=== PATIENT | female | born 1935 | race Two or more races ===

== ENCOUNTER → 2016-06-22 | Outpatient (CLI) | payer MEDICARE, MEDICAID | LOC: OD 12:37 | PROVIDERS: ATTEND Family Medicine | DX: R05 Cough (principal) | CPT/HCPCS: 71020 ==

== ENCOUNTER → 2017-07-11 | Outpatient (CLI) | payer MEDICARE, MEDICAID ==
--- NOTE | 2017-07-11 10:47 | RADIOLOGY REPORT (SQ) ---
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 Images stored on PACS. LIMITATIONS: None. FINDINGS: RIGHT CAROTID CCA Velocities: Within normal limits. ICA Velocities Peak systolic 0.66 m/s. End diastolic is 0.14 m/s. Proximal ICA/CCA peak systolic ratio 1.1. Spectra normal. No significant plaque. LEFT CAROTID CCA Velocities: Within normal limits. ICA Velocities Peak systolic 1.14 m/s. End diastolic 0.31 m/s. Proximal ICA/CCA peak systolic ratio 2.0. Spectra normal. No significant plaque. VERTEBRAL ARTERIES: Antegrade flow. Normal waveforms. SUBCLAVIAN ARTERIES: Not imaged. OTHER: No other significant finding. IMPRESSION: NO HEMODYNAMICALLY SIGNIFICANT STENOSIS. COMMENT: Quality ID #[id number]: Velocity criteria are extrapolated from the diameter data as defined by t he Society of Radiologists in Ultrasound Consensus Conference. Radiology 2003: 229; 340-346. TECHNICAL DOCUMENTATION: JOB ID: [id number] [employer]- All Rights Reserved Reading location - IP/workstation name: [email or web address]
== END ==
LOC: SP 08:15
PROVIDERS: ATTEND Family Medicine
DX: I65.23 Occlusion and stenosis of bilateral carotid arteries (principal)
CPT/HCPCS: 93880

== ENCOUNTER 2018-07-10 07:54 | Day surgery (SDC) | payer MEDICARE, MEDICAID ==
[~2018-07-10 07:54] MED LIST: BUPIVACAINE HCL 0.75% INJ/PF (7.5 MG/1 ML) 10 ML SDV OS PRN; KETOROLAC TROMETHAMINE 0.45% 4 DROP/0.4 ML DROPERETTE OS PRN; LIDOCAINE 4% INJ/PF (40 MG/ML) 5 ML AMPUL OS PRN
[2018-07-10] MEDS ORDERED: EPINEPHRINE INJ/PF 1 MG/1 ML AMPULE ONE (09:42)
[2018-07-10] MEDS ORDERED: LIDOCAINE 1% INJ-PF (10 MG/ML) 30 ML SDV ONE (09:42)
[2018-07-10] MEDS ORDERED: CHONDR SU A NA/HYALUR INTRAOC KIT (SURGICARE) ONE (09:42)
[2018-07-10] MEDS ORDERED: MIDAZOLAM 2 MG/2 ML INJ ONE (10:19)
[2018-07-10] MEDS: TROPICAMIDE 1% OPH SOLN 3 ML OS PRN ×3 (12:40→13:07)
[2018-07-10] MEDS: CYCLOPENTOLATE 0.2%/PHENYLEPHRINE 1% OPH SOLN 2 ML OS PRN ×3 (12:40→13:07)
[2018-07-10] MEDS: BESIFLOXACIN HCL 0.6% OPH SUSP 5 ML BOTTLE OS PRN ×4 (12:41→13:57)
[2018-07-10] MEDS: TETRACAINE HCL 0.5% OPH SOLN 0.6 ML DROPERETTE OS PRN ×2 (12:42→13:09)
[2018-07-10] MEDS ORDERED: TRYPAN BLUE 0.06 % OPH SOLN 0.5 ML DISP.SYRIN ONE (13:36)
[2018-07-10] MEDS: DORZOLAMIDE HCL 2%/TIMOLOL MALEAT 0.5% OPH SOLN 10 ML OS PRN ×2 (13:57)
--- NOTE | 2018-07-10 14:12 | [facility] DISCHARGE SUMMARY E ---
[facility] Discharge Summary NAME: PETRA GANDARA AGE: 83Y ADMITTED: 07/10/2018 DISCHARGED: 07/10/2018 HOSPITAL COURSE: The patient is a 83-year-old lady who underwent uneventful complex cataract extraction with intraocular lens implant, left eye on 07/10/18. She will be discharged to home. She is instructed to resume preoperative medications, take Tylenol as needed for discomfort, to keep her eye shielded, to use Besivance, Durezol and Ilevro at 3 p.m. and 8 p.m., and to follow up in my office in 1 day. DICTATING PHYSICIAN: KWAN EMMANUEL M.D. [id number] PHY#: [id number] ID: [id number] JOB#: [id number] ACCT: [id number] cc:KWAN EMMANUEL M.D. >
--- NOTE | 2018-07-10 14:13 | [facility] OPERATIVE REPORT E ---
[facility] Operative Report NAME: PETRA GANDARA AGE: 83Y DATE OF SURGERY: 07/10/2018 ROOM: PREOPERATIVE DIAGNOSIS: MATURE CATARACT, LEFT EYE. POSTOPERATIVE DIAGNOSIS: MATURE CATARACT, LEFT EYE. PROCEDURE PERFORMED: COMPLEX CATARACT EXTRACTION WITH INTRAOCULAR LENS IMPLANT, LEFT EYE. SURGEON: KWAN EMMANUEL MD ANESTHESIA: TOPICAL WITH MAC. INDICATIONS FOR SURGERY: Unable to read, difficulty ambulating. Best corrected visual acuity 20/400. Indications for complex poor visualization of the cataract requiring Trypan blue dye. PROCEDURE: The patient was brought to the Operating Room and placed on the operative table. Following tetracaine drops, topical anesthesia was administered. This consisted of instrument wipe pledgets soaked in a solution of 4% Xylocaine mixed with 0.75% Marcaine in a 1:2 ratio. A 2 x 1 cm pledget was placed in the superior fornix. A 1 x 1 cm pledget was placed in the inferior fornix. The eye was patched shut for 5 minutes. The patch was removed. The eye was sterilely prepped and draped in the usual manner. Lid speculum was placed in the eye. The pledgets were removed. 4-0 black silk sutures were placed around the superior and the inferior rectus muscles to be used as traction. A conjunctival peritomy was made at the 10 o'clock position. Hemostasis was obtained with bipolar cautery. A posterior limbal groove was created using a crescent knife and dissected anteriorly towards the cornea. A sharp point blade was used to create a paracentesis site at the 2 o'clock position. A 2.4 mm keratome was used to enter the anterior chamber through the groove. Viscoelastic was injected into the anterior chamber. An anterior capsulotomy was performed using Utrata forceps in a capsulorrhexis fashion. Hydrodissection and hydrodelineation were performed. Phacoemulsification was performed in parhrn-lmp-beruroq technique. A total of 1 minute 24 seconds phaco time was used. Following the incisions, a syringe with air and Trypan blue dye was injected through the side port incision exchanging aqueous with air and then injecting Trypan blue dye onto the surface of the capsule. Viscoelastic was then injected into the eye and the anterior capsulotomy was performed following this. Following this, the I/A unit was used to remove residual cortex. Viscoelastic was injected into the capsular bag. Intraocular lens model [id number], 20.5 diopters, serial number [id number] was placed in the capsular bag. The I/A unit was used to remove residual viscoelastic. The wound was seen to be watertight under high and low pressure, and no sutures were placed. The intraocular lens was well centered. The pressure was adjusted in the eye to normal pressure. The 4-0 black silk sutures and lid speculum were removed. The eye was shielded after Besivance drops were placed. The patient tolerated the procedure well and was sent to the Recovery Room in good condition. DICTATING PHYSICIAN: KWAN EMMANUEL M.D. DICTATING PHYSICIAN: KWAN EMMANUEL M.D. [id number] PHY#: [id number] ID: [id number] JOB#: [id number] ACCT: [id number] cc:KWAN EMMANUEL M.D. >
== END 2018-07-10 14:35 | disposition home or self-care (01) ==
LOC: SC 07:54
PROVIDERS: ATTEND Ophthalmology
DX: H25.813 Combined forms of age-related cataract, bilateral (principal); H04.123 Dry eye syndrome of bilateral lacrimal glands; E03.9 Hypothyroidism, unspecified; J44.9 Chronic obstructive pulmonary disease, unspecified; I10 Essential (primary) hypertension; K21.9 Gastro-esophageal reflux disease without esophagitis; Z79.51 Long term (current) use of inhaled steroids; Z79.899 Other long term (current) drug therapy
CPT/HCPCS: 66982; V2632; J2250; J3490 ×5; A9270; J0171; 142

== ENCOUNTER 2018-08-09 08:05 | Day surgery (SDC) | payer MEDICARE, MEDICAID ==
[~2018-08-09 08:05] MED LIST changes: +BUPIVACAINE HCL 0.75% INJ/PF (7.5 MG/1 ML) 10 ML SDV OD PRN; -BUPIVACAINE HCL 0.75% INJ/PF (7.5 MG/1 ML) 10 ML SDV OS PRN; +KETOROLAC TROMETHAMINE 0.45% 4 DROP/0.4 ML DROPERETTE OD PRN; -KETOROLAC TROMETHAMINE 0.45% 4 DROP/0.4 ML DROPERETTE OS PRN; +LIDOCAINE 4% INJ/PF (40 MG/ML) 5 ML AMPUL OD PRN; -LIDOCAINE 4% INJ/PF (40 MG/ML) 5 ML AMPUL OS PRN
[2018-08-09] MEDS ORDERED: EPINEPHRINE INJ/PF 1 MG/1 ML AMPULE ONE (08:18)
[2018-08-09] MEDS ORDERED: LIDOCAINE 1% INJ-PF (10 MG/ML) 30 ML SDV ONE (08:19)
[2018-08-09] MEDS ORDERED: CHONDR SU A NA/HYALUR INTRAOC KIT (SURGICARE) ONE (08:19)
[2018-08-09] MEDS: CYCLOPENTOLATE 0.2%/PHENYLEPHRINE 1% OPH SOLN 2 ML OD PRN ×3 (08:31→08:50)
[2018-08-09] MEDS: TROPICAMIDE 1% OPH SOLN 3 ML OD PRN ×3 (08:31→08:50)
[2018-08-09] MEDS: BESIFLOXACIN HCL 0.6% OPH SUSP 5 ML BOTTLE OD PRN ×4 (08:32→09:29)
[2018-08-09] MEDS: TETRACAINE HCL 0.5% OPH SOLN 0.6 ML DROPERETTE OD PRN ×2 (08:33→08:51)
[2018-08-09] MEDS ORDERED: MIDAZOLAM 2 MG/2 ML INJ ONE (08:40)
[2018-08-09] MEDS: DORZOLAMIDE HCL 2%/TIMOLOL MALEAT 0.5% OPH SOLN 10 ML OD PRN ×2 (09:23→09:29)
--- NOTE | 2018-08-09 09:43 | [facility] OPERATIVE REPORT E ---
[facility] Operative Report NAME: PETRA GANDARA AGE: 83Y DATE OF SURGERY: 08/09/2018 ROOM: PREOPERATIVE DIAGNOSIS: Cataract, right eye. POSTOPERATIVE DIAGNOSIS: Cataract, right eye. PROCEDURE PERFORMED: Phacoemulsification with posterior chamber intraocular lens, right eye. SURGEON: KWAN EMMANUEL M.D. ANESTHESIA: Topical with MAC. INDICATIONS FOR SURGERY: Difficulty seeing people's faces. Best corrected visual acuity 20/50. PROCEDURE: The patient was brought to the operating room and placed on the operative table. Following tetracaine drops, topical anesthesia was administered. This consisted of instrument wipe pledgets soaked in a solution of 4% Xylocaine mixed with 0.75% Marcaine in a 1:2 ratio. A 2 x 1 cm pledget was placed in the superior fornix. A 1 x 1 cm pledget was placed in the inferior fornix. The eye was patched shut for 5 minutes. The patch was removed. The eye was sterilely prepped and draped in the usual manner. Lid speculum was placed in the eye. The pledgets were removed and 4-0 black silk sutures were placed around the superior and the inferior rectus muscles to be used as traction. A conjunctival peritomy was made at the 10 o'clock position. Hemostasis was obtained with bipolar cautery. A posterior limbal groove was created using a crescent knife and dissected anteriorly towards the cornea. A sharp point blade was used to create a paracentesis site at the 2 o'clock position. A 2.4 mm keratome was used to enter the anterior chamber through the groove. Viscoelastic was injected into the anterior chamber. An anterior capsulotomy was performed using Utrata forceps in a capsulorrhexis fashion. Hydrodissection and hydrodelineation were performed. Phacoemulsification was performed in pnewbp-zdn-piiiojc technique. Total phaco time was 1 minute 11 seconds used. Following this, the I/A unit was used to remove residual cortex. Viscoelastic was injected into the capsular bag. Intraocular lens model SN60WF, 20.5 diopters, serial number [id number], was placed in the capsular bag. The I/A unit was used to remove residual viscoelastic. The wound was seen to be watertight under high and low pressure, and no sutures were placed. The intraocular lens was well centered. The pressure was adjusted in the eye to normal pressure. The 4-0 black silk sutures and lid speculum were removed. The eye was shielded after Besivance drops were placed. The patient tolerated the procedure well and was sent to the recovery room in good condition. DICTATING PHYSICIAN: KWAN EMMANUEL M.D. [id number] PHY#: [id number] ID: [id number] JOB#: [id number] ACCT: [id number] cc:KWAN EMMANUEL M.D. >
--- NOTE | 2018-08-09 09:44 | [facility] DISCHARGE SUMMARY E ---
[facility] Discharge Summary NAME: PETRA GANDARA AGE: 83Y ADMITTED: 08/09/2018 DISCHARGED: 08/09/2018 FINAL DIAGNOSIS: Cataract, right eye. HOSPITAL COURSE: The patient is an 83-year-old lady who underwent uneventful cataract extraction with intraocular lens implant, right eye, on 08/09/2018. She will be discharged to home. She was instructed to resume preoperative medications; to take Tylenol as needed for discomfort; to keep her eye shielded; to use Besivance, Ilevro, and Durezol at 3 p.m. and 8 p.m.; and to follow up in my office in 1 day. DICTATING PHYSICIAN: KWAN EMMANUEL M.D. [id number] Y#: [id number] ID: [id number] JOB#: [id number] ACCT: [id number] cc:KWAN EMMANUEL M.D. >
== END 2018-08-09 10:24 | disposition home or self-care (01) ==
LOC: SC 08:05
PROVIDERS: ATTEND Ophthalmology
DX: H25.811 Combined forms of age-related cataract, right eye (principal); Z96.1 Presence of intraocular lens; I10 Essential (primary) hypertension; K21.9 Gastro-esophageal reflux disease without esophagitis; E07.9 Disorder of thyroid, unspecified; Z79.899 Other long term (current) drug therapy
CPT/HCPCS: 66984; V2632; J2250; J3490 ×4; A9270; J0171; 142

== ENCOUNTER 2019-04-05 08:50 | Outpatient (CLI) | payer MEDICARE, MEDICAID ==
[2019-04-05] MEDS ORDERED: NORMAL SALINE 250 ML IV PRN (09:00)
[2019-04-05] MEDS ORDERED: FERUMOXYTOL (NON-ESRD) 510 MG/NS 100 ML IV PRN ×2 (09:00)
[2019-04-05 09:09] VITALS: BP 138/61
== END 2019-04-05 10:23 | disposition home or self-care (01) ==
LOC: II 08:50 → 5TH 09:09 → II 10:23
PROVIDERS: ATTEND Internal Medicine
PROC: 3E033GC Introduction of Other Therapeutic Substance into Peripheral Vein, Percutaneous Approach (ICD-10-PCS; principal; 2019-04-05)
DX: D50.8 Other iron deficiency anemias (principal); K90.9 Intestinal malabsorption, unspecified
CPT/HCPCS: 96365; Q0138; J7050

== ENCOUNTER 2019-04-12 09:07 | Outpatient (CLI) | payer MEDICARE, MEDICAID ==
[~2019-04-12 09:07] MED LIST changes: -BUPIVACAINE HCL 0.75% INJ/PF (7.5 MG/1 ML) 10 ML SDV OD PRN; +FERUMOXYTOL 510 MG in NORMAL SALINE 100 ML IV PRN; -KETOROLAC TROMETHAMINE 0.45% 4 DROP/0.4 ML DROPERETTE OD PRN; -LIDOCAINE 4% INJ/PF (40 MG/ML) 5 ML AMPUL OD PRN; +NORMAL SALINE 250 ML IV PRN
[2019-04-12 09:10] VITALS: BP 156/82
== END 2019-04-12 10:15 | disposition home or self-care (01) ==
LOC: II 09:07 → 5TH 09:09 → II 10:15
PROVIDERS: ATTEND Internal Medicine
PROC: 3E033GC Introduction of Other Therapeutic Substance into Peripheral Vein, Percutaneous Approach (ICD-10-PCS; principal; 2019-04-12)
DX: D50.8 Other iron deficiency anemias (principal); K90.9 Intestinal malabsorption, unspecified
CPT/HCPCS: 96365; Q0138; J7050

== ENCOUNTER 2019-12-13 17:42 | Inpatient (IN) | payer MEDICARE, MEDICAID ==
--- NOTE | 2019-12-13 18:02 | ER Document Report ---
ED Medical Screen (RME) - General Chief Complaint: Blood Pressure Problem Stated Complaint: LOW BLOOD PRESSURE/BLOODY NOSE Time Seen by Provider: 12/13/19 17:52 Primary Care Provider: ARNOLDO CASTILLO MD [Primary Care Provider] - Follow up as needed Notes: Patient is an 84-year-old female with a history of an MD currently wearing a LifeVest who presents the emergency department with dizziness. According to the the patient's family member, the patient has felt dizzy for a while. Patient has history of anemia with blood transfusions in the past. Exam: S1, S2. Patient is alert. I have greeted and performed a rapid initial assessment of this patient. A comprehensive ED assessment and evaluation of the patient, analysis of test results and completion of medical decision making process will be conducted by an additional ED providers. TRAVEL OUTSIDE OF THE [place] IN LAST 30 DAYS: No - Related Data Allergies/Adverse Reactions: No Known Allergies Allergy (Verified 07/06/18 11:13) Past Medical History - Social History Frequency of alcohol use: None Drug Abuse: None - Past Medical History Cardiac Medical History: Reports: Hx Hypertension Denies: Hx Heart Attack Pulmonary Medical History: Denies: Hx Asthma Neurological Medical History: Denies: Hx Cerebrovascular Accident, Hx Seizures GI Medical History: Denies: Hx Hepatitis, Hx Hiatal Hernia, Hx Ulcer Infectious Medical History: Denies: Hx Hepatitis Past Surgical History: Denies: Hx Mastectomy, Hx Open Heart Surgery, Hx Pac emaker Physical Exam - Vital signs Vitals: Temp Pulse Resp BP Pulse Ox 97.8 F 79 18 107/56 L 98 12/13/19 17:50 12/13/19 17:50 12/13/19 17:50 12/13/19 17:50 12/13/19 17:50 Course - Vital Signs Vital signs: Temp Pulse Resp BP Pulse Ox 97.8 F 79 18 107/56 L 98 12/13/19 17:50 12/13/19 17:50 12/13/19 17:50 12/13/19 17:50 12/13/19 17:50 Doctor's Discharge - Discharge Referrals: ARNOLDO CASTILLO MD [Primary Care Provider] - Follow up as needed
--- NOTE | 2019-12-13 18:17 | ER Document Report ---
ED General - General Chief Complaint: Blood Pressure Problem Stated Complaint: LOW BLOOD PRESSURE/BLOODY NOSE Time Seen by Provider: 12/13/19 17:52 Primary Care Provider: ARNOLDO EVANS MD [Primary Care Provider] - Follow up as needed Mode of Arrival: Wheelchair Information source: Patient Notes: 84-year-old Hungarian-speaking female arrives with her daughter Sammi who is bilingual with chief complaint of warm left foot and cool to touch right foot and also nosebleeds. Patient denies any chest pain but is wearing a LifeVest which has been present for more than 2 months as placed by [facility] computer support specialist Dr. Darron Nunes. I spoke with Dr. Paras Strong because the patient had ST elevation in her anterior leads today. According to his EKGs that have been quite up-to-date her last EKG over [address] elevation anterior leads. Patient has no chest pain. But she does take Brilinta which may cause nosebleeds. 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 The stent was placed LAD and she has 35% ejection fraction. Patient also takes Toprol 12.5 twice daily and the daughter reports she has held this because of low blood pressure. The patient also was on losartan and Ranexa and Crestor and Lasix 20 Chief Complaint: Blood Pressure Problem Stated Complaint: LOW BLOOD PRESSURE/BLOODY NOSE Time Seen by Provider: 12/13/19 17:52 Primary Care Provider: ARNOLDO EVANS MD [Primary Care Provider] - Follow up as needed Notes: Patient is an 84-year-old female with a history of an IA currently wearing a LifeVest who presents the emergency department with dizziness. According to the the patient's family member, the patient has felt dizzy for a while. Patient has history of anemia with blood transfusions in the past. Exam: S1, S2. Patient is alert. EKG with sinus rhythm at [address] elevation anterior leads LifeVest on TRAVEL OUTSIDE OF THE [place] IN LAST 30 DAYS: No - Related Data Allergies/Adverse Reactions: No Known Allergies Allergy (Verified 07/06/18 11:13) Past Medical History - General Information source: Patient, Relative - Social History Smoking Status: Never Smoker Cigarette use (# per day): No Chew tobacco use (# tins/day): No Smoking Education Provided: No Frequency of alcohol use: None Drug Abuse: None Lives with: Family Family History: Reviewed & Not Pertinent Patient has suicidal ideation: No - Past Medical History Cardiac Medical History: Reports: Hx Hypertension Denies: Hx Heart Attack Pulmonary Medical History: Denies: Hx Asthma Neurological Medical History: Denies: Hx Cerebrovascular Accident, Hx Seizures GI Medical History: Denies: Hx Hepatitis, Hx Hiatal Hernia, Hx Ulcer Infectious Medical History: Denies: Hx Hepatitis Past Surgical History: Denies: Hx Mastectomy, Hx Open Heart Surgery, Hx Pacemaker Review of Systems - Review of Systems Constitutional: See HPI, Weakness EENT: See HPI, Other - nosebleed Cardiovascular: No symptoms reported Respiratory: No symptoms reported Gastrointestinal: No symptoms reported Genitourinary: No symptoms reported Female Genitourinary: No symptoms reported Musculoskeletal: See HPI, Ankle swelling, Other - subjective coolness to right foot Skin: No symptoms reported Hematologic/Lymphatic: No symptoms reported Neurological/Psychological: No symptoms reported Physical Exam - Vital signs Vitals: Temp Pulse Resp BP Pulse Ox 97.8 F 79 18 107/56 L 98 12/13/19 17:50 12/13/19 17:50 12/13/19 17:50 12/13/19 17:50 12/13/19 17:50 Interpretation: Hypotensive - HEENT Head: Normocephalic, Atraumatic Eyes: Normal Pupils: PERRL Sinus: Normal Nasal: Normal - I evaluated nares and found no bloody remnants in her nostrils. Daughter reports she has bleeding nose on a daily basis. I see no evidence of this at this time. Oral pharyngeal posterior pharyngeal shows no bloody drainage. Mouth/Lips: Normal Mucous membranes: Normal Pharynx: Normal Neck: Normal - Respiratory Respiratory status: No respiratory distress Chest status: Nontender Breath sounds: Normal Chest palpation: Normal - Cardiovascular Rhythm: Regular, Other - Patient is wearing LifeVest and chest x-ray was taken with this on and they show the intact electrical gear for this patient. Heart sounds: Normal auscultation Murmur: No Friction rub: No - Abdominal Inspection: Normal Distension: No distension Bowel sounds: Normal Tenderness: Nontender Organomegaly: No organomegaly - Rectal Hemorrhoids: Other - deferred - Genitourinary Bimanuel exam: Other - deferred - Back Back: Normal - Extremities General upper extremity: Normal inspection General lower extremity: Normal inspection, Other - Pulses are full to bilateral dorsalis pedis and posterior tibialis with right foot perceptibly cooler than the left but not by much on my palpation. Wrist: Normal - Full radial pulses bilaterally full capillary refill. - Neurological Neuro grossly intact: Yes Cognition: Normal Orientation: AAOx4 Brianna Coma Scale Eye Opening: Spontaneous Brianna Coma Scale Verbal: Oriented [place] Coma Scale Motor: Obeys Commands Brianna Coma Scale Total: 15 Speech: Normal Motor strength normal: LUE, RUE, LLE, RLE Sensory: Normal - Psychological Associated symptoms: Normal affect - Skin Skin Temperature: Warm Skin Moisture: Dry Course - Vital Signs Vital signs: Temp Pulse Resp BP Pulse Ox 97.8 F 79 19 116/69 100 12/13/19 17:50 12/13/19 17:50 12/13/19 19:02 12/13/19 19:01 12/13/19 19:02 - Laboratory Result Diagrams: 12/13/19 18:45 12/13/19 18:45 Laboratory results interpreted by me: 12/13/19 12/13/19 12/13/19 18:45 18:45 18:45 RBC 2.48 L Hgb 6.2 L Hct 19.3 L MCV 78 L MCH 25.0 L RDW 16.3 H Luce % (Auto) 16.0 H Sodium 132.2 L Est GFR (MDRD) Non-Af 54 L Glucose 114 H Crossmatch See Detail - Diagnostic Test Radiology reviewed: Reports reviewed - EKG Interpretation by Me EKG shows normal: Sinus rhythm Rate: Normal Rhythm: NSR - With 82 bpm sinus rhythm with no T wave inversion but ST elevation to the anterior leads at least 0.12 on V3. I have no old EKGs to compare this to and therefore called Dr. Strong for any old EKGs. He returned call at 1849 and advises the EKG has no changes since August. Critical Care Note - Critical Care Note Comments: I discussed with Dr. Paras Strong at around 1840 and he will look for old EKG. per Dr. Strong the EKG looks the same. Because of a 6.2 hemoglobin and a history of nosebleeds while on Brilinta I called Dr. Evans her personal doctor. Film Processing Supervisor advises that he is not on by Dr. Marie is on for them. He was called at 1919 and a message was left on his phone per pipe cleaning machine operator. I spoke with Dr. Marie at 1938 and he advises he will accept the patient for transfusion. Also RN nurse Yarely is aware of this. Discharge - Discharge Clinical Impression: Epistaxis not due to trauma, Symptomatic anemia Hypotension Qualifiers: Hypotension type: hypotension due to drug Qualified Code(s): I95.2 - Hypotension due to drugs Condition: Good Disposition: ADMITTED INPATIENT Admitting Provider: Frank Unit Admitted: IMCU Referrals: ARNOLDO EVANS MD [Primary Care Provider] - Follow up as needed
[2019-12-13] MEDS ORDERED: NORMAL SALINE 500 ML IV ONE (18:47)
--- NOTE | 2019-12-13 18:53 | RADIOLOGY REPORT (SQ) ---
EXAM DESCRIPTION: CHEST SINGLE VIEW IMAGES COMPLETED DATE/TIME: 12/13/2019 6:39 pm REASON FOR STUDY: dizziness COMPARISON: 2012 EXAM PARAMETERS: NUMBER OF VIEWS: One view. TECHNIQUE: Single frontal radiographic view of the chest acquired. RADIATION DOSE: NA LIMITATIONS: Slightly limited by monitoring devices. FINDINGS: LUNGS AND PLEURA: No opacities, masses or pneumothorax. No pleural effusion. MEDIASTINUM AND HILAR STRUCTURES: No masses. Contour normal. HEART AND VASCULAR STRUCTURES: Heart normal in size. Normal vasculature. BONES: No acute findings. HARDWARE: None in the chest. OTHER: No other significant finding. IMPRESSION: NO ACUTE RADIOGRAPHIC FINDING IN THE CHEST. TECHNICAL DOCUMENTATION: JOB ID: [id number] 2010 [employer]- All Rights Reserved Reading location - IP/workstation name: [email or web address]
[2019-12-13 19:04] LABS: ABSOLUTE EOSINOPHILS # (AUTO) 0.1 10^3/uL (0.0-0.6); ABSOLUTE LYMPHOCYTES (AUTO) 1.5 10^3/uL (0.5-4.7); ABSOLUTE MONOCYTES (AUTO) 0.8 10^3/uL (0.1-1.4); ABSOLUTE NEUT (AUTO) 2.7 10^3/uL (1.7-8.2); BASOPHILS % (AUTO) 0.7 % (0-2); EOSINOPHILS % (AUTO) 2.6 % (0-6); HEMATOCRIT 19.3 % (36.0-47.0); LYMPHOCYTES % (AUTO) 28.7 % (13-45); MEAN CORPUSCULAR VOLUME 78 fl (80-97); PLATELET COUNT 272 10^3/uL (150-450); RED BLOOD COUNT 2.48 10^6/uL (3.72-5.28); RED CELL DISTRIBUTION WIDTH 16.3 % (11.5-14.0); TOTAL CELLS COUNTED % (AUTO) 100 %; WHITE BLOOD COUNT 5.3 10^3/uL (4.0-10.5)
[2019-12-13 19:14] LABS: HEMOGLOBIN 6.2 g/dL (12.0-15.5)
[2019-12-13] MEDS ORDERED: NORMAL SALINE 250 ML IV PRN ×2 (19:26)
[2019-12-13 19:32] LABS: ALBUMIN 3.5 g/dL (3.5-5.0); ALKALINE PHOSPHATASE 61 U/L (38-126); ANION GAP 6 (5-19); ASPARTATE AMINO TRANSFERASE 26 U/L (14-36); BILIRUBIN,TOTAL 0.4 mg/dL (0.2-1.3); BLOOD UREA NITROGEN 16 mg/dL (7-20); CALCIUM 8.5 mg/dL (8.4-10.2); CARBON DIOXIDE 25 mmol/L (22-30); CHLORIDE 101 mmol/L (98-107); GLUCOSE 114 mg/dL (75-110); POTASSIUM 4.3 mmol/L (3.6-5.0); TOTAL PROTEIN 6.3 g/dL (6.3-8.2)
[2019-12-13] MEDS ORDERED: (PENDING PHARMACY ID) (Rosuvastatin Calcium [Rosuvastatin Calcium] 40 MG) PO SCH (22:00)
[2019-12-13 22:03] LABS: CREATINE KINASE MB 1.03 ng/mL (<4.55); TROPONIN I 0.023 ng/mL
--- NOTE | 2019-12-13 23:04 | EKG REPORT ---
SEVERITY:- BORDERLINE ECG - SINUS RHYTHM CONSIDER ANTERIOR INFARCT : Confirmed by: Stormy Kovacs MD 13-Dec-2019 23:03:59
[2019-12-13] MEDS: ATORVASTATIN CALCIUM 80 MG TABLET PO SCH (23:09)
[2019-12-14] MEDS: PANTOPRAZOLE SODIUM 40 MG TABLET.DR PO SCH (09:15)
[2019-12-14 09:23] LABS: ABSOLUTE EOSINOPHILS # (AUTO) 0.1 10^3/uL (0.0-0.6); ABSOLUTE LYMPHOCYTES (AUTO) 1.1 10^3/uL (0.5-4.7); ABSOLUTE MONOCYTES (AUTO) 0.6 10^3/uL (0.1-1.4); ABSOLUTE NEUT (AUTO) 2.8 10^3/uL (1.7-8.2); BASOPHILS % (AUTO) 0.8 % (0-2); EOSINOPHILS % (AUTO) 2.4 % (0-6); HEMATOCRIT 28.3 % (36.0-47.0); LYMPHOCYTES % (AUTO) 24.3 % (13-45); MEAN CORPUSCULAR HEMOGLOBIN 26.7 pg (27.0-33.4); MEAN CORPUSCULAR HGB CONC 33.1 g/dL (32.0-36.0); MEAN CORPUSCULAR VOLUME 81 fl (80-97); MONOCYTES % (AUTO) 12.5 % (3-13); PLATELET COUNT 238 10^3/uL (150-450); RED CELL DISTRIBUTION WIDTH 15.9 % (11.5-14.0); TOTAL CELLS COUNTED % (AUTO) 100 %; WHITE BLOOD COUNT 4.7 10^3/uL (4.0-10.5)
[2019-12-14 09:26] LABS: HEMOGLOBIN 9.4 g/dL (12.0-15.5)
[2019-12-14 09:35] LABS: ANION GAP 6 (5-19); BLOOD UREA NITROGEN 11 mg/dL (7-20); CALCIUM 8.7 mg/dL (8.4-10.2); CARBON DIOXIDE 23 mmol/L (22-30); CHLORIDE 106 mmol/L (98-107); GLUCOSE 172 mg/dL (75-110)
--- NOTE | 2019-12-14 11:29 | PDOC H&P ---
History of Present Illness Admission Date/PCP: 12/13/19 20:23 ARNOLDO CASTILLO MD History of Present Illness: PETRA GANDARA is a 84 year old female she has a history of coronary artery disease, she recently had a stent placement in the left anterior descending artery, the ejection fraction of the left ventricle was supposedly 25% she has a LifeVest in place, the stent was inserted August 2019 the recommendation is for patient with drug-eluting stent to have dual antiplatelet uninterrupted for 12 months. Patient is on aspirin and Brilinta. She came to emergency room last night for evaluation of low blood pressure, in the emergency room she had blood work that demonstrated very low hemoglobin, 6, there was a history of nosebleed, patient does not speak [place] and cannot get any history from this patient and called the daughter's phone number at [phone] more than twice with no answer, I reviewed the record from the ER. I do not know how much nosebleed she had and how long she has been bleeding that provoked such severe anemia. She has microcytic anemia suggesting chronic blood loss and not an acute blood loss, I was trying to reach the daughter if she has chronic nosebleed but this was not successful. I have no otoscope to look at the nose as well, but when I saw the patient she was not bleeding from the nose or the rectum, when she came last night I thought she might need endoscopy and consulted with surgicalist for endoscopy but because I am not sure if this a GI bleed or nosebleeds induced anemia the consult is canceled Past Medical History Cardiac Medical History: Reports: Coronary Artery Disease, Hypertension Past Surgical History Past Surgical History: Reports: Cardiac Catheterization - stent x1 Denies: Amputation, Mastectomy, Pacemaker Social History Lives with: Family Smoking Status: Unknown if Ever Smoked Electronic Cigarette use?: No Frequency of Alcohol Use: None Hx Recreational Drug Use: No Hx Prescription Drug Abuse: No Family History Family History: Reviewed & Not Pertinent Parental Family History Reviewed: Yes Children Family History Reviewed: Yes Sibling(s) Family History Reviewed.: Yes Medication/Allergy Home Medications: Losartan Potassium 25 mg PO DAILY 07/06/18 Aspirin [Aspirin 81 mg Chewable Tablet] 81 mg PO DAILY 12/13/19 Furosemide [Lasix 20 mg Tablet] 20 mg PO BID 12/13/19 Metoprolol Succinate [Toprol Xl 25 mg Tab.sr] 25 mg PO DAILY 12/13/19 Nitroglycerin 0.4 mg SL PRN PRN 12/13/19 Pantoprazole Sodium [Protonix] 40 mg PO DAILY 12/13/19 Ranolazine [Ranolazine ER] 500 mg PO Q12 12/13/19 Rosuvastatin Calcium 40 mg PO QHS 12/13/19 Ticagrelor [Brilinta 90 mg Tablet] 1 tab PO BID 12/13/19 Allergies/Adverse Reactions: No Known Allergies Allergy (Verified 12/13/19 20:51) Review of Systems ROS unobtainable: Other - She does not speak [place], language barrier Physical Exam Vital Signs: Temp Pulse Resp BP Pulse Ox 98.6 F 88 16 131/76 H 98 12/14/19 08:28 12/14/19 08:28 12/14/19 08:28 12/14/19 08:28 12/14/19 08:28 Intake & Output 12/13/19 12/14/19 12/15/19 06:59 06:59 06:59 Intake Total 1620 Balance 1620 Weight 56.9 kg General appearance: PRESENT: no acute distress Head exam: PRESENT: atraumatic, normocephalic Eye exam: PRESENT: conjunctiva pink, EOMI, PERRLA Ear exam: PRESENT: normal external ear exam Mouth exam: PRESENT: moist, tongue midline Neck exam: PRESENT: full ROM Respiratory exam: PRESENT: clear to auscultation sky Cardiovascular exam: PRESENT: RRR, +S1, +S2 Pulses: PRESENT: normal dorsalis pedis pul, +2 pedal pulses bilateral Vascular exam: PRESENT: normal capillary refill GI/Abdominal exam: PRESENT: normal bowel sounds, soft Rectal exam: PRESENT: deferred Neurological exam: PRESENT: alert, awake, oriented to person, oriented to place, oriented to time, oriented to situation, CN II-XII grossly intact Psychiatric exam: PRESENT: appropriate affect, normal mood Skin exam: PRESENT: dry, intact, warm Results Laboratory Results: 12/14/19 08:58 12/14/19 08:58 12/13/19 12/13/19 12/13/19 18:45 18:45 18:45 WBC 5.3 RBC 2.48 L Hgb 6.2 L Hct 19.3 L MCV 78 L MCH 25.0 L MCHC 32.0 RDW 16.3 H Plt Count 272 Seg Neutrophils % 52.0 Sodium 132.2 L Potassium 4.3 Chloride 101 Carbon Dioxide 25 Anion Gap 6 BUN 16 Creatinine 0.98 Est GFR ( Amer) > 60 Est GFR (Non-Af Amer) Glucose 114 H Calcium 8.5 Magnesium 2.2 Total Bilirubin 0.4 AST 26 Alkaline Phosphatase 61 Total Protein 6.3 Albumin 3.5 Blood Type B POSITIVE Antibody Screen NEGATIVE 12/13/19 12/14/19 12/14/19 18:45 08:58 08:58 WBC 4.7 RBC 3.50 L Hgb 9.4 L D Hct 28.3 L MCV 81 MCH 26.7 L MCHC 33.1 RDW 15.9 H Plt Count 238 Seg Neutrophils % 60.0 Sodium Cancelled 134.6 L Potassium Cancelled 4.0 Chloride Cancelled 106 Carbon Dioxide Cancelled 23 Anion Gap Cancelled 6 BUN Cancelled 11 Creatinine Cancelled 0.77 Est GFR ( Amer) Cancelled > 60 Est GFR (Non-Af Amer) Cancelled Glucose Cancelled 172 H Calcium Cancelled 8.7 Magnesium Total Bilirubin AST Alkaline Phosphatase Total Protein Albumin Blood Type Antibody Screen 12/13/19 12/13/19 12/14/19 18:45 18:45 08:58 Creatine Kinase 70 65 CK-MB (CK-2) 1.03 Troponin I 0.023 12/14/19 08:58 Creatine Kinase CK-MB (CK-2) Troponin I 0.032 Impressions: Chest X-Ray 12/13/19 18:00 IMPRESSION: NO ACUTE RADIOGRAPHIC FINDING IN THE CHEST. Assessment & Plan - Diagnosis (1) Anemia Qualifiers: Anemia type: iron deficiency Iron deficiency anemia type: chronic blood loss Qualified Code(s): D50.0 - Iron deficiency anemia secondary to blood loss (chronic) Is this a current diagnosis for this admission?: Yes Plan: She has severe microcytic anemia suggesting chronic blood loss, history of epistasis? Duration unknown, no family member to give history, patient does not speak [place], transfuse with red blood cells (2) Coronary artery disease Qualifiers: Coronary Disease-Associated Artery/Lesion type: [place] artery [place] vs. transplanted heart: [place] heart Associated angina: without angina Qualified Code(s): I25.10 - Atherosclerotic heart disease of [place] coronary artery without angina pectoris Is this a current diagnosis for this admission?: Yes Plan: She has left anterior descending artery disease with stent placement in August 2019, she needs dual antiplatelet uninterrupted for at least 12 months presently on aspirin and Brilinta, she has a LifeVest in place, she will continue the antiplatelet we will continue monitor patient closely in the hospital - Time Time Spent: Greater than 70 Minutes Medications reviewed and adjusted accordingly: Yes Anticipated Discharge Disposition: Home, Self Care Anticipated Discharge Timeframe: within 72 hours
[2019-12-14] MEDS: METOPROLOL SUCCINATE 25 MG TAB.SR.24H PO SCH (12:14)
[2019-12-14] MEDS: ASPIRIN 81 MG TABLET, CHEWABLE PO SCH (12:14)
[2019-12-14] MEDS ORDERED: LOSARTAN POTASSIUM 50 MG TABLET PO SCH (13:15)
[2019-12-14] MEDS: LOSARTAN POTASSIUM 25 MG TABLET PO SCH (13:43)
[2019-12-14] MEDS: TICAGRELOR 90 MG TABLET PO SCH (17:46)
[2019-12-14] MEDS: ATORVASTATIN CALCIUM 80 MG TABLET PO SCH (22:09)
[2019-12-15 06:16] LABS: ABSOLUTE BASOPHILS # (AUTO) 0.1 10^3/uL (0.0-0.2); ABSOLUTE EOSINOPHILS # (AUTO) 0.3 10^3/uL (0.0-0.6); ABSOLUTE LYMPHOCYTES (AUTO) 1.3 10^3/uL (0.5-4.7); ABSOLUTE MONOCYTES (AUTO) 0.9 10^3/uL (0.1-1.4); ABSOLUTE NEUT (AUTO) 3.5 10^3/uL (1.7-8.2); BASOPHILS % (AUTO) 0.9 % (0-2); EOSINOPHILS % (AUTO) 4.5 % (0-6); HEMATOCRIT 27.8 % (36.0-47.0); HEMOGLOBIN 9.4 g/dL (12.0-15.5); LYMPHOCYTES % (AUTO) 22.2 % (13-45); MEAN CORPUSCULAR HEMOGLOBIN 26.9 pg (27.0-33.4); MEAN CORPUSCULAR HGB CONC 33.9 g/dL (32.0-36.0); MEAN CORPUSCULAR VOLUME 79 fl (80-97); MONOCYTES % (AUTO) 15.2 % (3-13); PLATELET COUNT 231 10^3/uL (150-450); RED BLOOD COUNT 3.51 10^6/uL (3.72-5.28); RED CELL DISTRIBUTION WIDTH 16.1 % (11.5-14.0); SEGMENTED NEUTROPHILS % (AUTO) 57.2 % (42-78); TOTAL CELLS COUNTED % (AUTO) 100 %
[2019-12-15] MEDS: ASPIRIN 81 MG TABLET, CHEWABLE PO SCH (09:21)
[2019-12-15] MEDS: LOSARTAN POTASSIUM 25 MG TABLET PO SCH (09:21)
[2019-12-15] MEDS: TICAGRELOR 90 MG TABLET PO SCH ×2 (09:21→17:17)
[2019-12-15] MEDS: PANTOPRAZOLE SODIUM 40 MG TABLET.DR PO SCH (09:21)
[2019-12-15] MEDS: METOPROLOL SUCCINATE 25 MG TAB.SR.24H PO SCH (09:21)
--- NOTE | 2019-12-15 13:24 | PDOC PROGRESS REPORT ---
Subjective Progress Note for:: 12/15/19 Subjective:: I had a long discussion with the patient's daughter, the patient does not speak Czech, she stated that she had heavy epistasis for 2 days, she required multiple paper towel so most likely the epistasis is the cause of the anemia. She is not presently actively bleeding, she was started on the dual antiplatelet yesterday, she has to continue the antiplatelet uninterrupted for 12 months because she has a newly inserted drug-eluting stent in the LAD Reason For Visit: SEVERE ANEMIA Physical Exam Vital Signs: Temp Pulse Resp BP Pulse Ox 98.6 F 65 19 107/59 L 98 12/15/19 11:19 12/15/19 11:19 12/15/19 11:19 12/15/19 11:19 12/15/19 11:19 Intake & Output 12/14/19 12/15/19 12/16/19 06:59 06:59 06:59 Intake Total 1620 2320 Balance 1620 2320 Weight 56.9 kg 55.5 kg General appearance: PRESENT: no acute distress, well-developed, well-nourished Head exam: PRESENT: atraumatic, normocephalic Eye exam: PRESENT: PERRLA Ear exam: PRESENT: normal external ear exam Mouth exam: PRESENT: moist, tongue midline Neck exam: PRESENT: full ROM Respiratory exam: PRESENT: clear to auscultation sky Cardiovascular exam: PRESENT: RRR, +S1, +S2 Pulses: PRESENT: normal dorsalis pedis pul, +2 pedal pulses bilateral Vascular exam: PRESENT: normal capillary refill GI/Abdominal exam: PRESENT: normal bowel sounds, soft Rectal exam: PRESENT: deferred Neurological exam: PRESENT: alert, CN II-XII grossly intact. ABSENT: motor sensory deficit Psychiatric exam: PRESENT: appropriate affect, normal mood Skin exam: PRESENT: dry, intact, warm. ABSENT: cyanosis, rash Results Laboratory Results: 12/15/19 05:48 12/14/19 08:58 12/15/19 05:48 WBC 6.0 RBC 3.51 L Hgb 9.4 L Hct 27.8 L MCV 79 L MCH 26.9 L MCHC 33.9 RDW 16.1 H Plt Count 231 Seg Neutrophils % 57.2 12/13/19 12/13/19 12/14/19 18:45 18:45 08:58 Creatine Kinase 70 65 CK-MB (CK-2) 1.03 Troponin I 0.023 12/14/19 12/14/19 12/14/19 08:58 14:15 14:15 Creatine Kinase 61 CK-MB (CK-2) Troponin I 0.032 0.041 12/14/19 12/14/19 20:50 20:50 Creatine Kinase 59 CK-MB (CK-2) Troponin I 0.039 Impressions: Chest X-Ray 12/13/19 18:00 IMPRESSION: NO ACUTE RADIOGRAPHIC FINDING IN THE CHEST. Assessment & Plan - Diagnosis (1) Anemia Qualifiers: Anemia type: iron deficiency Iron deficiency anemia type: chronic blood loss Qualified Code(s): D50.0 - Iron deficiency anemia secondary to blood loss (chronic) Is this a current diagnosis for this admission?: Yes (2) Coronary artery disease Qualifiers: Coronary Disease-Associated Artery/Lesion type: [place] artery [place] vs. transplanted heart: [place] heart Associated angina: without angina Qualified Code(s): I25.10 - Atherosclerotic heart disease of [place] coronary artery without angina pectoris Is this a current diagnosis for this admission?: Yes Plan: She has LAD lesion with a recently inserted drug-eluting stent, she was restarted on the dual antiplatelet yesterday, patient have to continue uninterrupted for 12 months because the risk of restenosis of the stent is extremely high if patient is not taking 2 antiplatelet medications, patient could probably be discharged home tomorrow if she remains bleed free (3) Epistaxis not due to trauma Is this a current diagnosis for this admission?: Yes Plan: She does not presently have active epistasis, yesterday I did an otoscope examination I did not see any active bleed or any lesion - Time Time Spent with patient: 25-34 minutes Level of Care: IMCU Medications reviewed and adjusted accordingly: Yes Anticipated discharge: Home Anticipated DC Timeframe: within 24 hours
[2019-12-15] MEDS: ATORVASTATIN CALCIUM 80 MG TABLET PO SCH (22:07)
[2019-12-16 07:07] LABS: ABSOLUTE EOSINOPHILS # (AUTO) 0.3 10^3/uL (0.0-0.6); ABSOLUTE LYMPHOCYTES (AUTO) 1.2 10^3/uL (0.5-4.7); ABSOLUTE MONOCYTES (AUTO) 0.7 10^3/uL (0.1-1.4); ABSOLUTE NEUT (AUTO) 2.9 10^3/uL (1.7-8.2); BASOPHILS % (AUTO) 0.7 % (0-2); EOSINOPHILS % (AUTO) 5.1 % (0-6); HEMOGLOBIN 9.6 g/dL (12.0-15.5); LYMPHOCYTES % (AUTO) 22.7 % (13-45); MEAN CORPUSCULAR HEMOGLOBIN 26.7 pg (27.0-33.4); MEAN CORPUSCULAR HGB CONC 33.2 g/dL (32.0-36.0); MEAN CORPUSCULAR VOLUME 81 fl (80-97); MONOCYTES % (AUTO) 13.8 % (3-13); PLATELET COUNT 246 10^3/uL (150-450); RED CELL DISTRIBUTION WIDTH 16.3 % (11.5-14.0); SEGMENTED NEUTROPHILS % (AUTO) 57.7 % (42-78); TOTAL CELLS COUNTED % (AUTO) 100 %; WHITE BLOOD COUNT 5.1 10^3/uL (4.0-10.5)
[2019-12-16] MEDS: TICAGRELOR 90 MG TABLET PO SCH (10:02)
[2019-12-16] MEDS: PANTOPRAZOLE SODIUM 40 MG TABLET.DR PO SCH (10:02)
[2019-12-16] MEDS: LOSARTAN POTASSIUM 25 MG TABLET PO SCH (10:02)
[2019-12-16] MEDS: ASPIRIN 81 MG TABLET, CHEWABLE PO SCH (10:02)
[2019-12-16] MEDS: METOPROLOL SUCCINATE 25 MG TAB.SR.24H PO SCH (10:02)
[2019-12-16] MEDS ORDERED: DEXTROSE 40% GEL 15 GM TUBE PO PRN ×2 (10:32)
[2019-12-16] MEDS ORDERED: GLUCAGON,HUMAN RECOMB 1 MG INJ SUBCUT PRN (10:32)
[2019-12-16] MEDS ORDERED: DEXTROSE 50%-WATER 25 GM/50 ML DISP.SYRIN IV PRN ×2 (10:32)
--- NOTE | 2019-12-16 12:38 | PDOC PROGRESS REPORT ---
Subjective Progress Note for:: 12/16/19 Subjective:: Patient was admitting in the hospital because of the anemia and a nosebleed Since after the admission having no nosebleed patient hemoglobin is all stable status post blood transfusions Nursing staff noticed patient having some prolapse from the rectum and patient have a history of the incomplete rectal prolapse and hemorrhoids seen by Dr. Puente in the past Patient's also seen by Dr. Santos for iron deficiency anemia last hemoglobin is 10.2 in office She is denied any abdominal pain no nausea no vomiting Patient have recently coronary artery disease with a stent placement currently on aspirin and Brilinta Reason For Visit: SEVERE ANEMIA Physical Exam Vital Signs: Temp Pulse Resp BP Pulse Ox 97.9 F 69 14 111/70 98 12/16/19 11:58 12/16/19 11:58 12/16/19 11:58 12/16/19 11:58 12/16/19 11:58 Intake & Output 12/15/19 12/16/19 12/17/19 06:59 06:59 06:59 Intake Total 2320 1580 120 Balance 2320 1580 120 Weight 55.5 kg 56.4 kg General appearance: PRESENT: no acute distress, well-developed, well-nourished Head exam: PRESENT: atraumatic, normocephalic Eye exam: PRESENT: conjunctiva pink, EOMI, PERRLA. ABSENT: scleral icterus Ear exam: PRESENT: normal external ear exam Mouth exam: PRESENT: moist, tongue midline Neck exam: PRESENT: full ROM. ABSENT: carotid bruit, JVD, lymphadenopathy, thyromegaly Respiratory exam: PRESENT: clear to auscultation sky Cardiovascular exam: PRESENT: RRR. ABSENT: diastolic murmur, rubs, systolic murmur Pulses: PRESENT: normal dorsalis pedis pul, +2 pedal pulses bilateral Vascular exam: PRESENT: normal capillary refill GI/Abdominal exam: PRESENT: normal bowel sounds, soft. ABSENT: distended, guarding, mass, organolmegaly, rebound, tenderness Rectal exam: PRESENT: deferred Neurological exam: PRESENT: alert, awake, oriented to person, oriented to place, oriented to time, oriented to situation, CN II-XII grossly intact. ABSENT: motor sensory deficit Psychiatric exam: PRESENT: appropriate affect, normal mood. ABSENT: homicidal i deation, suicidal ideation Skin exam: PRESENT: dry, intact, warm. ABSENT: cyanosis, rash Results Laboratory Results: 12/16/19 05:56 12/14/19 08:58 12/16/19 05:56 WBC 5.1 RBC 3.60 L Hgb 9.6 L Hct 29.0 L MCV 81 MCH 26.7 L MCHC 33.2 RDW 16.3 H Plt Count 246 Seg Neutrophils % 57.7 12/13/19 12/13/19 12/14/19 18:45 18:45 08:58 Creatine Kinase 70 65 CK-MB (CK-2) 1.03 Troponin I 0.023 12/14/19 12/14/19 12/14/19 08:58 14:15 14:15 Creatine Kinase 61 CK-MB (CK-2) Troponin I 0.032 0.041 12/14/19 12/14/19 20:50 20:50 Creatine Kinase 59 CK-MB (CK-2) Troponin I 0.039 Impressions: Chest X-Ray 12/13/19 18:00 IMPRESSION: NO ACUTE RADIOGRAPHIC FINDING IN THE CHEST. Assessment & Plan - Diagnosis (1) Incomplete rectal prolapse Is this a current diagnosis for this admission?: Yes Plan: We consult Dr. Puente to further evaluations most likely hemorrhoid where he already has seen the patient couple of years back (2) Blood in stool Is this a current diagnosis for this admission?: Yes Plan: Currently all stable not active bleeding's (3) Anemia Qualifiers: Anemia type: iron deficiency Iron deficiency anemia type: chronic blood loss Qualified Code(s): D50.0 - Iron deficiency anemia secondary to blood loss (chronic) Is this a current diagnosis for this admission?: Yes Plan: We will get the iron studies (4) Coronary artery disease Qualifiers: Coronary Disease-Associated Artery/Lesion type: [place] artery [place] vs. transplanted heart: [place] heart Associated angina: without angina Qualified Code(s): I25.10 - Atherosclerotic heart disease of [place] coronary artery without angina pectoris Is this a current diagnosis for this admission?: Yes Plan: Continues the aspirin BrilintaWith a drug eluded stent was placed couple of months back (5) Epistaxis not due to trauma Is this a current diagnosis for this admission?: Yes Plan: Currently all resolved - Time Time Spent with patient: 15-24 minutes Level of Care: IMCU Medications reviewed and adjusted accordingly: Yes Anticipated discharge: Home with Homehealth Anticipated DC Timeframe: within 48 hours - Plan Summary Plan Summary: We will consult the general surgery to further evaluate get the iron study try to reach the daughter unable to answer
[2019-12-16 14:23] LABS: ABSOLUTE RETICS # 0.078 10^6/uL (0.028-0.122); RETICULOCYTE COUNT (AUTO) 3.17 % (0.66-2.85)
--- NOTE | 2019-12-16 14:46 | PDOC CONSULTATION ---
Consultation Consult Date: 12/16/19 Attending physician:: ARNOLDO EVANS Provider Consulted: JAVIER BANSAL Consult reason:: Acute blood loss anemia History of Present Illness Admission Date/PCP: 12/13/19 20:23 ARNOLDO EVANS MD History of Present Illness: PETRA GANDARA is a 84 year old female Is brought to the emergency department via ground rescue with her family with the report of nosebleed. Patient is found to be hypotensive, with a hemoglobin of 6.2. Patient was admitted to the medicine service, where she continued to have fluctuation in blood pressure, and rectal bleeding. She Was transfused 2 units of packed red blood cells and her hemoglobin came up to 0.6. She is remained hemodynamically stable. There is no history of upper or lower endoscopy, however patient does not speak [place], does not speak [place], and we cannot get up with the family to ascertain history. I did speak with Dr. Nathan moulton that patient has been evaluated by [facility] in the past and was found to have rectal prolapse. Patient is a full code, history of my ocardial event within the past year, history of coronary artery stent placement August 2019, with the initiation of antiplatelet therapy and 10 a inhibitor: Patient wears a emergency cardiac LifeVest. He is now reconsulted for evaluation and treatment of rectal bleeding Past Medical History Cardiac Medical History: Reports: Coronary Artery Disease, Hypertension Denies: Myocardial Infarction Pulmonary Medical History: Denies: Asthma Neurological Medical History: Denies: Seizures GI Medical History: Denies: Hepatitis, Hiatal Hernia Psychiatric Medical History: Denies: Depression Hematology: Denies: Anemia, Sickle Cell Disease Past Surgical History Past Surgical History: Reports: Cardiac Catheterization - stent x1 Denies: Amputation, Mastectomy, Pacemaker Social History Lives with: Family Smoking Status: Unknown if Ever Smoked Electronic Cigarette use?: No Frequency of Alcohol Use: None Hx Recreational Drug Use: No Hx Prescription Drug Abuse: No Family History Family History: None, Reviewed & Not Pertinent Parental Family History Reviewed: No Children Family History Reviewed: NA Sibling(s) Family History Reviewed.: NA Medication/Allergy Home Medications: Losartan Potassium 25 mg PO DAILY 07/06/18 Furosemide [Lasix 20 mg Tablet] 20 mg PO BID 12/13/19 Metoprolol Succinate [Toprol Xl 25 mg Tab.sr] 25 mg PO DAILY 12/13/19 Nitroglycerin 0.4 mg SL PRN PRN 12/13/19 Pantoprazole Sodium [Protonix] 40 mg PO DAILY 12/13/19 Ranolazine [Ranolazine ER] 500 mg PO Q12 12/13/19 Rosuvastatin Calcium 40 mg PO QHS 12/13/19 Ticagrelor [Brilinta 90 mg Tablet] 1 tab PO BID 12/13/19 Aspirin [Ecotrin 81 mg EC Tablet] 81 mg PO DAILY 12/14/19 Allergies/Adverse Reactions: No Known Allergies Allergy (Verified 12/13/19 20:51) Review of Systems ROS unobtainable: Other - Unable to ascertain due to language barrier; no brake coupler road freight available; no Sara Campbell electronic translating device available Physical Exam Vital Signs: Temp Pulse Resp BP Pulse Ox 97.9 F 69 14 111/70 98 12/16/19 11:58 12/16/19 11:58 12/16/19 11:58 12/16/19 11:58 12/16/19 11:58 Intake & Output 12/15/19 12/16/19 12/17/19 06:59 06:59 06:59 Intake Total 2320 1580 120 Balance 2320 1580 120 Weight 55.5 kg 56.4 kg General appearance: PRESENT: no acute distress Head exam: PRESENT: normocephalic Eye exam: PRESENT: EOMI Ear exam: PRESENT: normal external ear exam, TM's normal bilaterally Mouth exam: PRESENT: dry mucosa Neck exam: PRESENT: full ROM Respiratory exam: PRESENT: clear to auscultation sky Cardiovascular exam: PRESENT: bradycardia Vascular exam: PRESENT: normal capillary refill GI/Abdominal exam: PRESENT: other - , Nontender no peritoneal signs or rigidity Rectal exam: PRESENT: other - Patient examined in the left lateral decubitus position. There is no perianal swelling, erythema. Anal verge carefully examined and no fissure, thrombosed hemorrhoid or fistula. Rectal examination with lubricated index finger reveals minimal internal hemorrhoids; no rectal mass. No stool or blood in the vault currently Psychiatric exam: PRESENT: other - Unable to assess due to language barrier Results Laboratory Results: 12/16/19 05:56 12/14/19 08:58 12/13/19 12/16/19 18:45 05:56 WBC 5.1 RBC 3.60 L Hgb 9.6 L Hct 29.0 L MCV 81 MCH 26.7 L MCHC 33.2 RDW 16.3 H Plt Count 246 Seg Neutrophils % 57.7 Retic Count (auto) 3.17 H 12/13/19 12/13/19 12/14/19 18:45 18:45 08:58 Creatine Kinase 70 65 CK-MB (CK-2) 1.03 Troponin I 0.023 12/14/19 12/14/19 12/14/19 08:58 14:15 14:15 Creatine Kinase 61 CK-MB (CK-2) Troponin I 0.032 0.041 12/14/19 12/14/19 20:50 20:50 Creatine Kinase 59 CK-MB (CK-2) Troponin I 0.039 Impressions: Chest X-Ray 12/13/19 18:00 IMPRESSION: NO ACUTE RADIOGRAPHIC FINDING IN THE CHEST. Assessment & Plan - Diagnosis (1) Blood in stool Is this a current diagnosis for this admission?: Yes Plan: Impression: Acute GI bleed in 84-year-old [id number] [place] female with a history of cardiomyopathy, recent coronary artery stents, on 10 a inhibitor; she is status post 2 unit blood transfusion, hemodynamically stable, with minimal recent blood loss last 48 hours. Minimal findings on rectal examination; unable to ascertain degree of rectal prolapse due to patient non-cooperation: Unknown endoscopic history Recommendations: 1. Situation challenged by the language barrier, and unavailability of family to ascertain complete HPI. At this moment, findings on rectal exam limited, however nondiagnostic. I have suggested we set patient up for consideration for upper and lower endoscopy tomorrow, Dr. Rao; I discussed this suggestion with Dr. Evans. Patient remains on aspirin and 10 a inhibitor, however we will hold today and tomorrow. Will order PEG solution for her to take tonight 3. We will obtain a COVID test (2) Cardiac LV ejection fraction 21-30% Is this a current diagnosis for this admission?: Yes (3) Anticoagulated Is this a current diagnosis for this admission?: Yes (4) Stented coronary artery Is this a current diagnosis for this admission?: Yes (5) Coronary artery disease Qualifiers: Coronary Disease-Associated Artery/Lesion type: [place] artery [place] vs. transplanted heart: [place] heart Associated angina: without angina Qualified Code(s): I25.10 - Atherosclerotic heart disease of [place] coronary artery without angina pectoris Is this a current diagnosis for this admission?: Yes (6) Hypotension Qualifiers: Hypotension type: hypotension due to drug Qualified Code(s): I95.2 - Hypotension due to drugs (7) Incomplete rectal prolapse Is this a current diagnosis for this admission?: Yes - Time Time Spent: 30 to 50 Minutes Smoking Cessation Education: over 10 minutes Medications reviewed and adjusted accordingly: Yes Anticipated discharge: Home - Inpatient Certification Based on my medical assessment, after consideration of the patient's comorbidities, presenting symptoms, or acuity I expect that the services needed warrant INPATIENT care.: Yes I certify that my determination is in accordance with my understanding of Medicare's requirements for reasonable and necessary INPATIENT services [42 CFR 412.3e].: Yes Medical Necessity: Need For IV Fluids, Need for Surgery
[2019-12-16] MEDS ORDERED: PEG 3350/NA SULF,BICARB,CL/KCL 4000 ML PO ONE (15:30)
[2019-12-16 15:32] LABS: IRON(TIBC) 12.1 ug/dL (37-170)
[2019-12-16 16:09] LABS: FERRITIN 8.99 ng/mL (11.1-264.0)
[2019-12-16 16:42] LABS: FOLATE > 20.00 ng/mL (>2.76)
[2019-12-16] MEDS: ATORVASTATIN CALCIUM 80 MG TABLET PO SCH (22:00)
[2019-12-17 06:09] LABS: ABSOLUTE BASOPHILS # (AUTO) 0.1 10^3/uL (0.0-0.2); ABSOLUTE EOSINOPHILS # (AUTO) 0.3 10^3/uL (0.0-0.6); ABSOLUTE LYMPHOCYTES (AUTO) 1.4 10^3/uL (0.5-4.7); ABSOLUTE MONOCYTES (AUTO) 0.7 10^3/uL (0.1-1.4); ABSOLUTE NEUT (AUTO) 2.4 10^3/uL (1.7-8.2); BASOPHILS % (AUTO) 1.3 % (0-2); EOSINOPHILS % (AUTO) 5.9 % (0-6); HEMATOCRIT 30.2 % (36.0-47.0); HEMOGLOBIN 10.1 g/dL (12.0-15.5); LYMPHOCYTES % (AUTO) 29.3 % (13-45); MEAN CORPUSCULAR HEMOGLOBIN 26.9 pg (27.0-33.4); MEAN CORPUSCULAR HGB CONC 33.4 g/dL (32.0-36.0); MEAN CORPUSCULAR VOLUME 80 fl (80-97); MONOCYTES % (AUTO) 13.4 % (3-13); PLATELET COUNT 249 10^3/uL (150-450); RED BLOOD COUNT 3.76 10^6/uL (3.72-5.28); RED CELL DISTRIBUTION WIDTH 16.8 % (11.5-14.0); SEGMENTED NEUTROPHILS % (AUTO) 50.1 % (42-78); TOTAL CELLS COUNTED % (AUTO) 100 %; WHITE BLOOD COUNT 4.9 10^3/uL (4.0-10.5)
[2019-12-17 06:15] LABS: ANION GAP 7 (5-19); BLOOD UREA NITROGEN 7 mg/dL (7-20); CARBON DIOXIDE 24 mmol/L (22-30); CHLORIDE 108 mmol/L (98-107); GLUCOSE 94 mg/dL (75-110)
--- NOTE | 2019-12-17 07:47 | PDOC CONSULTATION ---
Consultation Consult Date: 12/17/19 Attending physician:: ARNOLDO CASTILLO Provider Consulted: OLIVERIO MELGAR Consult reason:: CAD History of Present Illness Admission Date/PCP: 12/13/19 20:23 ARNOLDO CASTILLO MD History of Present Illness: PETRA GANDARA is a 84 year old female with history of CAD (anterior STEMI 09/11/19 w MARK to mLAD with multivessal CAD), HTN, HLD, heart failure with reduced ejection fraction and ischemic cardiomyopathy with an ejection fraction between 30 and 35%, who was admitted to our institution for severe anemia. Unfortunately the patient barely speaks [place] therefore the history and present illness is derived from chart review. She was apparently having some nosebleeds and some GI bleed and was found to have a hemoglobin of 6 at which point she was given 2 units of blood. She apparently also has a history of chronic anemia treated by Dr. Santos. She was evaluated by surgery and has been scheduled for colonoscopy today, her DAPT was held yesterday and today in preparation for the study. I asked her if she had any chest pain or shortness of breath this morning using body language and she stated no. Physical exam on 12/17/2019: GENERAL: Pleasant. Unable to assess any further due to language barrier. She does not appear to be in any acute distress. Well groomed and well developed. HEENT: Normocephalic, atraumatic. Pupils equal. Sclerae anicteric. Oropharynx moist. NECK: No JVD. No carotid bruits. LUNGS: Clear to auscultation bilaterally. Normal respiratory effort without the use of accessory muscles or intercostal retractions. CARDIOVASCULAR: Regular rate and rhythm, normal S1 and S2 without murmurs, rubs, or gallops. PMI not displaced. ABDOMEN: No masses or tenderness to palpation. No bruit. No splenomegaly or hepatomegaly. No abdominal aorta bruit noted. EXTREMITIES: No edema, no cyanosis, no clubbing. +2 pulses femoral and pedal pulses bilaterally. SKIN: No lesions or rashes. MUSCULOSKELETAL: No chest tenderness to palpation. NEUROLOGIC: Nonfocal. No gross sensory or motor deficits bilateral upper or lower extremities. Cardiac studies: Left heart catheterization in August 2019: LEFT HEART ASSESSMENT LVEDP: 24 mmHg Moderately elevated Left Ventricular End Diastolic Pressure Valve Assessment: No Aortic Valve Stenosis CORONARY ANGIOGRAPHY DOMINANCE: Right Dominant LEFT MAIN: Vessel is moderate in size, 10 % Stenosis, Mildly calcified diffuse disease LEFT ANTERIOR DECENDING ARTERY: Vessel is moderate in size, Wraps the apex MID LAD: 100 % Stenosis, Heavily calcified diffuse disease DISTAL LAD: Diffusely diseased up to 95 % DIAGONAL 1: Vessel is very small in size, Moderate luminal irregularities up to 50% DIAGONAL 2: Vessel is small in size, Moderate luminal irregularities up to 50%,Severely tortuous CIRCUMFLEX ARTERY: Vessel is moderate in size, Moderate luminal irregularities up to 50%, Moderately tortuous OM 1: Vessel is small in size, Mild luminal irregularities less than 30%, Severely tortuous OM 2: Vessel is very small in size, Mild luminal irregularities less than 30%,Severely tortuous RIGHT CORONARY ARTERY: Vessel is moderate in size Moderate luminal irregularities up to 50% Moderately calcified diffuse disease Moderately tortuous RIGHT PDA: Moderate luminal irregularities up to 50%, Vessel is moderate in size, Moderately tortuous PERIPHERAL FINDINGS: Right Common Femoral Artery Angiographically non-obstructive Transthoracic echocardiogram on 09/11/2019 LVEF is 30-35%. Severe apex hypokinesis Severe apical anterior wall hypokinesis Moderate to severe mid anterior wall hypokinesis Mild mitral regurgitation. Moderate tricuspid regurgitation. Right ventricular systolic pressure is elevated at 40-50mmHg. Trace aortic insufficiency. Limited transthoracic echocardiogram 09/12/2019 Interpretation Summary Ejection Fraction = 25-30%. Severe apex hypokinesis Severe mid anterior wall hypokinesis Mild mitral regurgitation. No pericardial effusion. Past Medical History Cardiac Medical History: Reports: Coronary Artery Disease, Hypertension Denies: Myocardial Infarction Pulmonary Medical History: Denies: Asthma Neurological Medical History: Denies: Seizures GI Medical History: Denies: Hepatitis, Hiatal Hernia Psychiatric Medical History: Denies: Depression Hematology: Denies: Anemia, Sickle Cell Disease Past Surgical History Past Surgical History: Reports: Cardiac Catheterization - stent x1 Denies: Amputation, Mastectomy, Pacemaker Social History Lives with: Family Smoking Status: Unknown if Ever Smoked Electronic Cigarette use?: No Frequency of Alcohol Use: None Hx Recreational Drug Use: No Hx Prescription Drug Abuse: No Family History Family History: None, Reviewed & Not Pertinent Parental Family History Reviewed: Yes Children Family History Reviewed: Yes Sibling(s) Family History Reviewed.: Yes Medication/Allergy Home Medications: Losartan Potassium 25 mg PO DAILY 07/06/18 Furosemide [Lasix 20 mg Tablet] 20 mg PO BID 12/13/19 Metoprolol Succinate [Toprol Xl 25 mg Tab.sr] 25 mg PO DAILY 12/13/19 Nitroglycerin 0.4 mg SL PRN PRN 12/13/19 Pantoprazole Sodium [Protonix] 40 mg PO DAILY 12/13/19 Ranolazine [Ranolazine ER] 500 mg PO Q12 12/13/19 Rosuvastatin Calcium 40 mg PO QHS 12/13/19 Ticagrelor [Brilinta 90 mg Tablet] 1 tab PO BID 12/13/19 Aspirin [Ecotrin 81 mg EC Tablet] 81 mg PO DAILY 12/14/19 Allergies/Adverse Reactions: No Known Allergies Allergy (Verified 12/13/19 20:51) Physical Exam Vital Signs: Temp Pulse Resp BP Pulse Ox 97.7 F 73 16 115/71 99 12/17/19 03:30 12/17/19 03:30 12/17/19 03:30 12/17/19 03:30 12/17/19 03:30 Intake & Output 12/15/19 12/16/19 12/17/19 06:59 06:59 06:59 Intake Total 2320 1580 5130 Output Total 4000 Balance 2320 1580 1130 Weight 55.5 kg 56.4 kg Results Laboratory Results: 12/17/19 05:01 12/17/19 05:01 12/13/19 12/13/19 12/16/19 18:45 18:45 05:56 WBC 5.1 RBC 3.60 L Hgb 9.6 L Hct 29.0 L MCV 81 MCH 26.7 L MCHC 33.2 RDW 16.3 H Plt Count 246 Seg Neutrophils % 57.7 Retic Count (auto) 3.17 H Sodium Potassium Chloride Carbon Dioxide Anion Gap BUN Creatinine Est GFR ( Amer) Glucose Calcium Iron 12.1 L TIBC 437 % Saturation 3 Ferritin 8.99 L Vitamin B12 313.0 Folate > 20.00 12/17/19 12/17/19 05:01 05:01 WBC 4.9 RBC 3.76 Hgb 10.1 L Hct 30.2 L MCV 80 MCH 26.9 L MCHC 33.4 RDW 16.8 H Plt Count 249 Seg Neutrophils % 50.1 Retic Count (auto) Sodium 138.6 Potassium 4.0 Chloride 108 H Carbon Dioxide 24 Anion Gap 7 BUN 7 Creatinine 0.65 Est GFR ( Amer) > 60 Glucose 94 Calcium 9.0 Iron TIBC % Saturation Ferritin Vitamin B12 Folate 12/13/19 12/13/19 12/14/19 18:45 18:45 08:58 Creatine Kinase 70 65 CK-MB (CK-2) 1.03 Troponin I 0.023 12/14/19 12/14/19 12/14/19 08:58 14:15 14:15 Creatine Kinase 61 CK-MB (CK-2) Troponin I 0.032 0.041 12/14/19 12/14/19 20:50 20:50 Creatine Kinase 59 CK-MB (CK-2) Troponin I 0.039 Impressions: Chest X-Ray 12/13/19 18:00 IMPRESSION: NO ACUTE RADIOGRAPHIC FINDING IN THE CHEST. Assessment & Plan - Diagnosis (1) Coronary artery disease Qualifiers: Coronary Disease-Associated Artery/Lesion type: [place] artery [place] vs. transplanted heart: crow heart Associated angina: without angina Qualified Code(s): I25.10 - Atherosclerotic heart disease of [place] coronary artery without angina pectoris Is this a current diagnosis for this admission?: Yes Plan: Status post anterior STEMI in late August 2019 with placement of drug-eluting stent to the mid LAD. She has remained free of ischemic symptoms although there is a significant language barrier. Her dual antiplatelet therapy was stopped yesterday and today in order for her to undergo GI work-up. Her telemetry demon strates normal sinus rhythm with occasional PVCs and occasional ventricular bigeminy. Recommendations: -Continue with current medical management for now. -Restart dual antiplatelet therapy AMGI. -Continue with cardiac telemetry. -We will continue to follow with you (2) Ischemic cardiomyopathy Plan: As described above with an ejection fraction between 30 and 35%. Unfortunately her intake and output is inaccurate as her output has not been recorded. Recommendations: -Restart Lasix 20 mg daily. -Restrict fluid intake to 1500 cc daily. -Low sodium diet, less than 1500 mg daily. -Strict intake and output. -Daily weights. (3) Blood in stool Is this a current diagnosis for this admission?: Yes Plan: Currently followed by surgery and pending GI work-up. Her hemoglobin now is essentially at her baseline. Recommendations: -Further management per primary and surgery teams. -Please restart dual antiplatelet therapy MAGI. (4) Heart failure with reduced ejection fraction Is this a current diagnosis for this admission?: Yes Plan: The patient has a history of heart failure in the past with an ejection fraction between 30 and 35%. Please see above for recommendations. (5) Hypertension Is this a current diagnosis for this admission?: Yes Plan: Her blood pressure is at goal. We will continue with current management.
--- NOTE | 2019-12-17 09:28 | EKG REPORT ---
SEVERITY:- ABNORMAL ECG - SINUS RHYTHM CONSIDER ANTERIOR INFARCT, EVOLUTIONARY CHANGES OF A RECENT ANTERIOR NC : Confirmed by: Donavan Franco MD 17-Dec-2019 09:27:18
--- NOTE | 2019-12-17 09:34 | PDOC PROGRESS REPORT ---
Subjective Progress Note for:: 12/17/19 Subjective:: Patient is currently doing well No nosebleed anymore According to nursing staff no blood in the stool is seen Patient seen by the animal services officer reviewed the animal services officer consult not restart the Lasix Patient is scheduled for procedure for endoscopy per surgery Patient's denied any chest pain no short of breath No abdominal pain Reason For Visit: SEVERE ANEMIA Physical Exam Vital Signs: Temp Pulse Resp BP Pulse Ox 97.7 F 69 16 115/71 99 12/17/19 03:30 12/17/19 07:00 12/17/19 03:30 12/17/19 03:30 12/17/19 03:30 Intake & Output 12/16/19 12/17/19 12/18/19 06:59 06:59 06:59 Intake Total 1580 5130 Output Total 4450 Balance 1580 680 Weight 56.4 kg 54.1 kg General appearance: PRESENT: no acute distress, well-developed, well-nourished Head exam: PRESENT: atraumatic, normocephalic Eye exam: PRESENT: conjunctiva pink, EOMI, PERRLA. ABSENT: scleral icterus Ear exam: PRESENT: normal external ear exam Mouth exam: PRESENT: moist, tongue midline Neck exam: PRESENT: full ROM. ABSENT: carotid bruit, JVD, lymphadenopathy, thyromegaly Respiratory exam: PRESENT: clear to auscultation sky Cardiovascular exam: PRESENT: RRR. ABSENT: diastolic murmur, rubs, systolic murmur Pulses: PRESENT: normal dorsalis pedis pul, +2 pedal pulses bilateral Vascular exam: PRESENT: normal capillary refill GI/Abdominal exam: PRESENT: normal bowel sounds, soft. ABSENT: distended, guarding, mass, organolmegaly, rebound, tenderness Rectal exam: PRESENT: deferred Neurological exam: PRESENT: alert, awake, oriented to person, oriented to place. ABSENT: motor sensory deficit Psychiatric exam: PRESENT: appropriate affect, normal mood. ABSENT: homicidal ideation, suicidal ideation Skin exam: PRESENT: dry, intact, warm. ABSENT: cyanosis, rash Results Laboratory Results: 12/17/19 05:01 12/17/19 05:01 12/13/19 12/13/19 12/17/19 18:45 18:45 05:01 WBC 4.9 RBC 3.76 Hgb 10.1 L Hct 30.2 L MCV 80 MCH 26.9 L MCHC 33.4 RDW 16.8 H Plt Count 249 Seg Neutrophils % 50.1 Retic Count (auto) 3.17 H Sodium Potassium Chloride Carbon Dioxide Anion Gap BUN Creatinine Est GFR ( Amer) Glucose Calcium Iron 12.1 L TIBC 437 % Saturation 3 Ferritin 8.99 L Vitamin B12 313.0 Folate > 20.00 12/17/19 05:01 WBC RBC Hgb Hct MCV MCH MCHC RDW Plt Count Seg Neutrophils % Retic Count (auto) Sodium 138.6 Potassium 4.0 Chloride 108 H Carbon Dioxide 24 Anion Gap 7 BUN 7 Creatinine 0.65 Est GFR ( Amer) > 60 Glucose 94 Calcium 9.0 Iron TIBC % Saturation Ferritin Vitamin B12 Folate 12/13/19 12/13/19 12/14/19 18:45 18:45 08:58 Creatine Kinase 70 65 CK-MB (CK-2) 1.03 Troponin I 0.023 12/14/19 12/14/19 12/14/19 08:58 14:15 14:15 Creatine Kinase 61 CK-MB (CK-2) Troponin I 0.032 0.041 12/14/19 12/14/19 20:50 20:50 Creatine Kinase 59 CK-MB (CK-2) Troponin I 0.039 Impressions: Chest X-Ray 12/13/19 18:00 IMPRESSION: NO ACUTE RADIOGRAPHIC FINDING IN THE CHEST. Assessment & Plan - Diagnosis (1) Incomplete rectal prolapse Is this a current diagnosis for this admission?: Yes Plan: Follow-up with the surgery (2) Blood in stool Is this a current diagnosis for this admission?: Yes Plan: Active bleeding is not seen (3) Anemia Qualifiers: Anemia type: iron deficiency Iron deficiency anemia type: chronic blood loss Qualified Code(s): D50.0 - Iron deficiency anemia secondary to blood loss (chronic) Is this a current diagnosis for this admission?: Yes Plan: Currently all stable (4) Coronary artery disease Qualifiers: Coronary Disease-Associated Artery/Lesion type: [place] artery [place] vs. transplanted heart: [place] heart Associated angina: without angina Qualified Code(s): I25.10 - Atherosclerotic heart disease of [place] coronary artery without angina pectoris Is this a current diagnosis for this admission?: Yes Plan: Currently stable per cardiology (5) Epistaxis not due to trauma Is this a current diagnosis for this admission?: Yes Plan: Currently all resolved - Time Time Spent with patient: 15-24 minutes Level of Care: IMCU Medications reviewed and adjusted accordingly: Yes Anticipated discharge: Home with Homehealth Anticipated DC Timeframe: within 48 hours - Plan Summary Plan Summary: Continues to current medications Try to contact with the daughter
--- NOTE | 2019-12-17 13:46 | PDOC CONSULTATION ---
Consultation Consult Date: 12/17/19 Provider Consulted: TAVO DERAS Consult reason:: Hematology/Oncology consultation was requested for patient with iron deficiency anemia after acute bleeding. History of Present Illness Admission Date/PCP: 12/13/19 20:23 ARNOLDO CASTILLO MD History of Present Illness: PETRA GANDARA is a 84 year old female who speaks very little Georgian. I was not able to reach an field service engineer or any family members. However, according to chart, patient presented with epistaxis and HGB 6.2 She is followed by cardiology as well. She is currently lying in bed, appears comfortable, and is trying to communicate, but due to language barrier, this is difficult. EGD and colonoscopy is planned for later today. Past Medical History Cardiac Medical History: Reports: Coronary Artery Disease, Hypertension Denies: Myocardial Infarction Pulmonary Medical History: Denies: Asthma Neurological Medical History: Denies: Seizures GI Medical History: Denies: Hepatitis, Hiatal Hernia Psychiatric Medical History: Denies: Depression Hematology: Denies: Anemia, Sickle Cell Disease Past Surgical History Past Surgical History: Reports: Cardiac Catheterization - stent x1 Denies: Amputation, Mastectomy, Pacemaker Social History Lives with: Family Smoking Status: Unknown if Ever Smoked Electronic Cigarette use?: No Frequency of Alcohol Use: None Hx Recreational Drug Use: No Hx Prescription Drug Abuse: No Family History Family History: None, Reviewed & Not Pertinent Parental Family History Reviewed: No - Language barrier. Children Family History Reviewed: No Sibling(s) Family History Reviewed.: No Medication/Allergy Home Medications: Losartan Potassium 25 mg PO DAILY 07/06/18 Furosemide [Lasix 20 mg Tablet] 20 mg PO BID 12/13/19 Metoprolol Succinate [Toprol Xl 25 mg Tab.sr] 25 mg PO DAILY 12/13/19 Nitroglycerin 0.4 mg SL PRN PRN 12/13/19 Pantoprazole Sodium [Protonix] 40 mg PO DAILY 12/13/19 Ranolazine [Ranolazine ER] 500 mg PO Q12 12/13/19 Rosuvastatin Calcium 40 mg PO QHS 12/13/19 Ticagrelor [Brilinta 90 mg Tablet] 1 tab PO BID 12/13/19 Aspirin [Ecotrin 81 mg EC Tablet] 81 mg PO DAILY 12/14/19 Allergies/Adverse Reactions: No Known Allergies Allergy (Verified 12/13/19 20:51) Review of Systems ROS unobtainable: Other - Language barrier. Physical Exam Vital Signs: Temp Pulse Resp BP Pulse Ox 97.7 F 69 16 115/71 99 12/17/19 03:30 12/17/19 07:00 12/17/19 03:30 12/17/19 03:30 12/17/19 03:30 Intake & Output 12/16/19 12/17/19 12/18/19 06:59 06:59 06:59 Intake Total 1580 5130 Output Total 4450 Balance 1580 680 Weight 56.4 kg 54.1 kg General appearance: PRESENT: no acute distress, thin Head exam: PRESENT: normocephalic Eye exam: PRESENT: EOMI Mouth exam: PRESENT: moist Neck exam: ABSENT: lymphadenopathy, tenderness Respiratory exam: PRESENT: clear to auscultation sky, unlabored Cardiovascular exam: PRESENT: RRR GI/Abdominal exam: PRESENT: soft. ABSENT: tenderness Extremities exam: ABSENT: pedal edema Musculoskeletal exam: PRESENT: normal inspection Neurological exam: PRESENT: alert, awake Psychiatric exam: PRESENT: appropriate affect Skin exam: PRESENT: normal color Results Laboratory Results: 12/17/19 05:01 12/17/19 05:01 12/13/19 12/13/19 12/17/19 18:45 18:45 05:01 WBC 4.9 RBC 3.76 Hgb 10.1 L Hct 30.2 L MCV 80 MCH 26.9 L MCHC 33.4 RDW 16.8 H Plt Count 249 Seg Neutrophils % 50.1 Retic Count (auto) 3.17 H Sodium Potassium Chloride Carbon Dioxide Anion Gap BUN Creatinine Est GFR ( Amer) Glucose Calcium Iron 12.1 L TIBC 437 % Saturation 3 Ferritin 8.99 L Vitamin B12 313.0 Folate > 20.00 12/17/19 05:01 WBC RBC Hgb Hct MCV MCH MCHC RDW Plt Count Seg Neutrophils % Retic Count (auto) Sodium 138.6 Potassium 4.0 Chloride 108 H Carbon Dioxide 24 Anion Gap 7 BUN 7 Creatinine 0.65 Est GFR ( Amer) > 60 Glucose 94 Calcium 9.0 Iron TIBC % Saturation Ferritin Vitamin B12 Folate 12/13/19 12/13/19 12/14/19 18:45 18:45 08:58 Creatine Kinase 70 65 CK-MB (CK-2) 1.03 Troponin I 0.023 12/14/19 12/14/19 12/14/19 08:58 14:15 14:15 Creatine Kinase 61 CK-MB (CK-2) Troponin I 0.032 0.041 12/14/19 12/14/19 20:50 20:50 Creatine Kinase 59 CK-MB (CK-2) Troponin I 0.039 Impressions: Chest X-Ray 12/13/19 18:00 IMPRESSION: NO ACUTE RADIOGRAPHIC FINDING IN THE CHEST. Assessment & Plan - Diagnosis (1) Anemia Qualifiers: Anemia type: iron deficiency Iron deficiency anemia type: chronic blood loss Qualified Code(s): D50.0 - Iron deficiency anemia secondary to blood loss (chronic) Is this a current diagnosis for this admission?: Yes Plan: Her Ferritin is very low. This would indicate a chronic blood loss. She has responded well to blood transfusions. However, she would also benefit from IV iron. I will go ahead and order a dose now, and then plan for second dose in my office as outpatient. I agree with plans for colonoscopy and EGD. (2) Coronary artery disease Qualifiers: Coronary Disease-Associated Artery/Lesion type: [place] artery [place] vs. transplanted heart: [place] heart Associated angina: without angina Qualified Code(s): I25.10 - Atherosclerotic heart disease of [place] coronary artery without angina pectoris Is this a current diagnosis for this admission?: Yes Plan: She is on blood thinners and risk of continued bleeding will need to be weighed with benefit of these medications. (3) Epistaxis not due to trauma Is this a current diagnosis for this admission?: Yes Plan: Now resolved.
[2019-12-17] MEDS ORDERED: GLUCAGON,HUMAN RECOMB 1 MG INJ ONE (15:07)
[2019-12-17] MEDS ORDERED: EPINEPHRINE INJ 1 MG/10 ML DISP.SYRIN ONE (15:07)
[2019-12-17] MEDS ORDERED: PROPOFOL INJ 200 MG/20 ML VIAL IV ONE (15:51)
[2019-12-17] MEDS ORDERED: MEPERIDINE HCL/PF INJ 25 MG/1 ML DISP.SYRIN IV PRN (16:26)
[2019-12-17] MEDS ORDERED: FENTANYL CITRATE INJ/PF 100 MCG/2 ML AMPUL IV PRN ×3 (16:26)
[2019-12-17] MEDS ORDERED: DIPHENHYDRAMINE HCL 50 MG/ML VIAL IV PRN (16:26)
[2019-12-17] MEDS ORDERED: PROMETHAZINE HCL INJ 25 MG/1 ML VIAL IV PRN ×2 (16:26)
--- NOTE | 2019-12-17 16:49 | Operative Report ---
Nonrecallable Operative Report DATE OF SURGERY: 12/17/19 PREOPERATIVE DIAGNOSIS: Anemia POSTOPERATIVE DIAGNOSIS: Anemia OPERATION: Esophagogastroduodenoscopy and colonoscopy SURGEON: JIMY MAHAN ANESTHESIA: LMAC TISSUE REMOVED OR ALTERED: Rectal biopsy COMPLICATIONS: None ESTIMATED BLOOD LOSS: 0 INTRAOPERATIVE FINDINGS: See note PROCEDURE: Procedure note patient was brought to the operating room awake alert stable condition placed on the upper table supine position given LMAC anesthesia after appropriate timeout site verification the procedure commenced The Olympus gastroscope was passed into the posterior pharynx and easily traversed the upper esophageal sphincters into the proximal esophagus we then traversed the esophagus into the stomach identified the body the stomach antrum the pylorus we intubated the pylorus and examined the duodenum. Upon slow withdrawal the duodenum was examined and it appeared to be normal without mucosal abnormality as we came through the pylorus that was examined the duodenal bulb was examined and there was no evidence of ulcerations the antrum body of the stomach were also examined there was no mucosal abnormalities the scope was then retroflexed and the hiatus was examined there was a moderate size hiatal hernia fundus appeared to be normal scope was then withdrawn past the lower esophageal sphincter and the distal esophagus also appeared to be normal without evidence of Lanier's esophagus. The scope was then slowly withdrawn. Attention was then turned to the colonoscopy. Olympus colonoscope was passed into the rectum as we traversed the rectum we identified the sigmoid colon which had moderate to severe diverticulosis was so mewhat difficult to identify a lumen secondary to multiple diverticuli we were eventually able to pass the scope up the descending colon to the splenic flexure we came around splenic flexure into the transverse colon hepatic flexure and descending colon we then identified the ileocecal valve there was no evidence of abnormalities in the cecum and as we traversed the ascending colon slowly over the course of about 10 minutes we examine all mucosal surfaces and there was no evidence of any polyps or mucosal abnormalities we came past the hepatic flexure into the transverse colon and then the splenic flexure also appeared to be normal as we came down the descending colon again note was moderate to severe diverticulosis of the entire descending colon until we reached approximately 20 cm from the anal verge where we identified some heaped up mucosa in the proximal rectum this was biopsied did not appear to be friable but it appeared to be erythematous. Possibly localized proctitis. Scope was then slowly withdrawn. Impression normal upper esophago-duodenoscopy without evidence of source of GI bleeding. Colonoscopy to the ileocecal valve identified only mild proctitis since moderate to severe diverticulosis. Patient was then awakened in the operating transferred recovery in stable condition
[2019-12-17] MEDS: PANTOPRAZOLE SODIUM 40 MG TABLET.DR PO SCH (18:03)
[2019-12-17] MEDS: FUROSEMIDE 20 MG TABLET PO SCH (18:03)
[2019-12-17] MEDS: LOSARTAN POTASSIUM 25 MG TABLET PO SCH (18:03)
[2019-12-17] MEDS: METOPROLOL SUCCINATE 25 MG TAB.SR.24H PO SCH (18:04)
[2019-12-17] MEDS: ATORVASTATIN CALCIUM 80 MG TABLET PO SCH (21:47)
[2019-12-18 06:24] LABS: BLOOD UREA NITROGEN 9 mg/dL (7-20); CALCIUM 8.8 mg/dL (8.4-10.2); CARBON DIOXIDE 24 mmol/L (22-30); CHLORIDE 109 mmol/L (98-107); GLUCOSE 107 mg/dL (75-110)
[2019-12-18 06:34] LABS: ANION GAP 4 (5-19)
--- NOTE | 2019-12-18 08:41 | PDOC PROGRESS REPORT ---
Subjective Progress Note for:: 12/18/19 Subjective:: PETRA GANDARA is a 84 year old female with history of CAD (anterior STEMI 09/11/19 w MARK to mLAD with multivessal CAD), HTN, HLD, heart failure with reduced ejection fraction and ischemic cardiomyopathy with an ejection fraction between 30 and 35%, who was admitted to our institution for severe anemia. Unfortunately the patient barely speaks [place] therefore the history and present illness is derived from chart review. She was apparently having some nosebleeds and some GI bleed and was found to have a hemoglobin of 6 at which point she was given 2 units of blood. She apparently also has a history of chronic anemia treated by Dr. Santos. She was evaluated by surgery and has been scheduled for colonoscopy today, her DAPT was held yesterday and today in preparation for the study. I asked her if she had any chest pain or shortness of breath this morning using body language and she stated no. 12/18/2019: The patient had an uneventful night and continues to be asymptomatic from the cardiovascular standpoint. She underwent EGD and colonoscopy yesterday without complications. She was found to have mild rectal prolapse however no source of bleeding was noted. She was seen by her renal nurse who considers the patient at high risk for bleeding given her age, BMI and history of chronic blood loss. Physical exam on 12/18/2019: GENERAL: Pleasant. Unable to assess any further due to language barrier. She does not appear to be in any acute distress. Well groomed and well developed. HEENT: Normocephalic, atraumatic. Pupils equal. Sclerae anicteric. Oropharynx moist. NECK: No JVD. No carotid bruits. LUNGS: Clear to auscultation bilaterally. Normal respiratory effort without the use of accessory muscles or intercostal retractions. CARDIOVASCULAR: Regular rate and rhythm, normal S1 and S2 without murmurs, rubs, or gallops. PMI not displaced. ABDOMEN: No masses or tenderness to palpation. No bruit. No splenomegaly or hepatomegaly. No abdominal aorta bruit noted. EXTREMITIES: No edema, no cyanosis, no clubbing. +2 pulses femoral and pedal pulses bilaterally. SKIN: No lesions or rashes. MUSCULOSKELETAL: No chest tenderness to palpation. NEUROLOGIC: Nonfocal. No gross sensory or motor deficits bilateral upper or lower extremities. Cardiac studies: Left heart catheterization in August 2019: LEFT HEART ASSESSMENT LVEDP: 24 mmHg Moderately elevated Left Ventricular End Diastolic Pressure Valve Assessment: No Aortic Valve Stenosis CORONARY ANGIOGRAPHY DOMINANCE: Right Dominant LEFT MAIN: Vessel is moderate in size, 10 % Stenosis, Mildly calcified diffuse disease LEFT ANTERIOR DECENDING ARTERY: Vessel is moderate in size, Wraps the apex MID LAD: 100 % Stenosis, Heavily calcified diffuse disease DISTAL LAD: Diffusely diseased up to 95 % DIAGONAL 1: Vessel is very small in size, Moderate luminal irregularities up to 50% DIAGONAL 2: Vessel is small in size, Moderate luminal irregularities up to 50%,Severely tortuous CIRCUMFLEX ARTERY: Vessel is moderate in size, Moderate luminal irregularities up to 50%, Moderately tortuous OM 1: Vessel is small in size, Mild luminal irregularities less than 30%, Severely tortuous OM 2: Vessel is very small in size, Mild luminal irregularities less than 30%,Severely tortuous RIGHT CORONARY ARTERY: Vessel is moderate in size Moderate luminal irregularities up to 50% Moderately calcified diffuse disease Moderately tortuous RIGHT PDA: Moderate luminal irregularities up to 50%, Vessel is moderate in size, Moderately tortuous PERIPHERAL FINDINGS: Right Common Femoral Artery Angiographically non-obstructive Transthoracic echocardiogram on 09/11/2019 LVEF is 30-35%. Severe apex hypokinesis Severe apical anterior wall hypokinesis Moderate to severe mid anterior wall hypokinesis Mild mitral regurgitation. Moderate tricuspid regurgitation. Right ventricular systolic pressure is elevated at 40-50mmHg. Trace aortic insufficiency. Limited transthoracic echocardiogram 09/12/2019 Interpretation Summary Ejection Fraction = 25-30%. Severe apex hypokinesis Severe mid anterior wall hypokinesis Mild mitral regurgitation. No pericardial effusion. Reason For Visit: SEVERE ANEMIA Physical Exam Vital Signs: Temp Pulse Resp BP Pulse Ox 97.4 F 70 20 104/63 97 12/18/19 03:12 12/18/19 03:12 12/18/19 03:12 12/18/19 03:12 12/18/19 03:12 Intake & Output 12/16/19 12/17/19 12/18/19 06:59 06:59 06:59 Intake Total 1580 5130 500 Output Total 4450 Balance 1580 680 500 Weight 56.4 kg 54.1 kg Results Laboratory Results: 12/17/19 05:01 12/18/19 05:31 12/18/19 05:31 Sodium 137.2 Potassium 4.0 Chloride 109 H Carbon Dioxide 24 Anion Gap 4 L BUN 9 Creatinine 0.64 Est GFR ( Amer) > 60 Glucose 107 Calcium 8.8 12/13/19 12/13/19 12/14/19 18:45 18:45 08:58 Creatine Kinase 70 65 CK-MB (CK-2) 1.03 Troponin I 0.023 12/14/19 12/14/19 12/14/19 08:58 14:15 14:15 Creatine Kinase 61 CK-MB (CK-2) Troponin I 0.032 0.041 12/14/19 12/14/19 20:50 20:50 Creatine Kinase 59 CK-MB (CK-2) Troponin I 0.039 Impressions: Chest X-Ray 12/13/19 18:00 IMPRESSION: NO ACUTE RADIOGRAPHIC FINDING IN THE CHEST. Current Medication List Generic Name Dose Route Start Last Admin Trade Name Freq PRN Reason Stop Dose Admin Atorvastatin Calcium 80 mg 12/13/19 22:00 12/17/19 21:47 Lipitor 80 Mg Tablet PO 01/12/20 21:59 80 mg QHS ALEX Administration Dextrose 12.5 gm 12/16/19 10:32 Dextrose Inj 50% Syringe (25 Gm/50 Ml) IV 01/15/20 10:31 PRN PRN FOR BG 50-69 IN ALERT PATIENT Protocol Dextrose 25 gm 12/16/19 10:32 Dextrose Inj 50% Syringe (25 Gm/50 Ml) IV 01/15/20 10:31 PRN PRN See Label Comments Protocol Furosemide 20 mg 12/17/19 10:00 12/17/19 18:03 Lasix 20 Mg Tablet PO 01/16/20 09:59 Not Given DAILY ALEX Glucagon 1 mg 12/16/19 10:32 Glucagen Inj 1 Mg Vial SUBCUT 01/15/20 10:31 PRN PRN Evaluate for BG < 70 Protocol Glucose 15 gm 12/16/19 10:32 Glutose 40% Gel 15 Gm Tube PO 01/15/20 10:31 PRN PRN For BG 50-69 in Alert Patient Protocol Glucose 30 gm 12/16/19 10:32 Glutose 40% Gel 15 Gm Tube PO 01/15/20 10:31 PRN PRN FOR BG < 50 IN ALERT PATIENT Protocol Ferric Carboxymaltose 750 mg/ 265 mls @ 795 mls/hr 12/18/19 10:00 Sodium Chloride IV 12/18/19 10:19 VINCE@1000 ONE Losartan Potassium 25 mg 12/14/19 14:00 12/17/19 18:03 Cozaar 25 Mg Tablet PO 01/13/20 13:59 Not Given DAILY ALEX Metoprolol Succinate 25 mg 12/14/19 13:00 12/17/19 18:04 Toprol Xl 25 Mg Tab.Sr PO 01/13/20 12:59 Not Given DAILY ALEX Pantoprazole Sodium 40 mg 12/14/19 10:00 12/17/19 18:[address] Tablet PO 01/13/20 09:59 Not Given DAILY ALEX Discontinued Medications Generic Name Dose Route Start Last Admin Trade Name Freq PRN Reason Stop Dose Admin Aspirin 81 mg 12/14/19 13:00 12/16/19 10:02 Aspirin 81 Mg Chewable Tablet PO 01/13/20 12:59 81 mg DAILY ALEX Administration Diphenhydramine HCl 12.5 mg 12/17/19 16:26 Benadryl Inj 50 Mg/1 Ml Vial IV 12/17/19 19:26 .WHILE IN PACU PRN ITCHING Epinephrine HCl Confirm 12/17/19 15:07 Epinephrine Inj 1 Mg/10 Ml Disp.Syrin Administered 12/17/19 15:08 Dose 1 mg .ROUTE .STK-MED ONE Fentanyl Citrate 25 mcg 12/17/19 16:26 Sublimaze Inj/Pf 100 Mcg/2 Ml Ampule IV 12/17/19 19:26 .WHILE IN PACU PRN PAIN SCALE 2-3 Fentanyl Citrate 12.5 mcg 12/17/19 16:26 Sublimaze Inj/Pf 100 Mcg/2 Ml Ampule IV 12/17/19 19:26 .WHILE IN PACU PRN PAIN SCALE OF 1 Fentanyl Citrate 50 mcg 12/17/19 16:26 Sublimaze Inj/Pf 100 Mcg/2 Ml Ampule IV 12/17/19 19:26 .WHILE IN PACU PRN PAIN SCALE 4-5 Glucagon Confirm 12/17/19 15:07 Glucagen Inj 1 Mg Vial Administered 12/17/19 15:08 Dose 1 mg .ROUTE .STK-MED ONE Sodium Chloride 500 mls @ 0 mls/hr 12/13/19 18:47 12/13/19 19:29 Nacl 0.9% 500 Ml Iv Soln IV 07/31/20 18:48 Infused NOW ONE Infusion Wide Open Sodium Chloride 250 mls @ 30 mls/hr 12/13/19 19:26 Nacl 0.9% 250 Ml Iv Soln IV 12/14/19 19:25 .DURING TRANSFUSION PRN THIS MED IS NOT "PRN" Sodium Chloride 250 mls @ 0 mls/hr 12/13/19 19:26 Nacl 0.9% 250 Ml Iv Soln IV 12/14/19 19:25 CONTINUOUS PRN AFTER EACH UNIT As Directed Meperidine HCl 12.5 mg 12/17/19 16:26 Demerol Inj 25 Mg/1 Ml Syringe IV 12/17/19 19:26 .WHILE IN PACU PRN Shivering Polyethylene Glycol/Electrolytes 4,000 ml 12/16/19 15:30 12/16/19 16:55 Golytely Solution 4000 Ml PO 12/16/19 15:31 4,000 ml NOW ONE Administration Promethazine HCl 12.5 mg 12/17/19 16:26 Phenergan Inj 25 Mg/1 Ml Vial IV 12/17/19 19:26 .WHILE IN PACU PRN NAUSEA AND VOMITING Promethazine HCl 25 mg 12/17/19 16:26 Phenergan Inj 25 Mg/1 Ml Vial IV 12/17/19 19:26 .WHILE IN PACU PRN NAUSEA AND VOMITING Propofol Confirm 12/17/19 15:51 Diprivan Inj 200 Mg/20 Ml Vial Administered 12/17/19 15:52 Dose 200 mg IV .STK-MED ONE Ticagrelor 90 mg 12/14/19 18:00 12/16/19 10:02 Brilinta 90 Mg Tablet PO 01/13/20 17:59 90 mg BID ALEX Administration 12/17/19 05:01 12/18/19 05:31 MCV 80 fl (80-97) 12/17/19 05:01 MCH 26.9 pg (27.0-33.4) L 12/17/19 05:01 MCHC 33.4 g/dL (32.0-36.0) 12/17/19 05:01 RDW 16.8 % (11.5-14.0) H 12/17/19 05:01 Seg Neutrophils % 50.1 % (42-78) 12/17/19 05:01 Retic Count (auto) 3.17 % (0.66-2.85) H 12/13/19 18:45 Chloride 109 mmol/L (98-107) H 12/18/19 05:31 Carbon Dioxide 24 mmol/L (22-30) 12/18/19 05:31 Anion Gap 4 (5-19) L 12/18/19 05:31 Est GFR ( Amer) > 60 (>60) 12/18/19 05:31 Est GFR (Non-Af Amer) Cancelled 12/13/19 18:45 Glucose 107 mg/dL (75-110) 12/18/19 05:31 Calcium 8.8 mg/dL (8.4-10.2) 12/18/19 05:31 Magnesium 2.2 mg/dL (1.6-2.3) 12/13/19 18:45 Iron 12.1 ug/dL (37-170) L 12/13/19 18:45 TIBC 437 ug/dL (250-450) 12/13/19 18:45 % Saturation 3 % 12/13/19 18:45 Ferritin 8.99 ng/mL (11.1-264.0) L 12/13/19 18:45 Total Bilirubin 0.4 mg/dL (0.2-1.3) 12/13/19 18:45 AST 26 U/L (14-36) 12/13/19 18:45 Alkaline Phosphatase 61 U/L (38-126) 12/13/19 18:45 Total Protein 6.3 g/dL (6.3-8.2) 12/13/19 18:45 Albumin 3.5 g/dL (3.5-5.0) 12/13/19 18:45 Vitamin B12 313.0 pg/mL (239-931) 12/13/19 18:45 Folate > 20.00 ng/mL (>2.76) 12/13/19 18:45 Blood Type B POSITIVE 12/13/19 18:45 Antibody Screen NEGATIVE 12/13/19 18:45 12/13/19 12/13/19 12/14/19 18:45 18:45 08:58 Creatine Kinase 70 65 CK-MB (CK-2) 1.03 Troponin I 0.023 12/14/19 12/14/19 12/14/19 08:58 14:15 14:15 Creatine Kinase 61 CK-MB (CK-2) Troponin I 0.032 0.041 12/14/19 12/14/19 20:50 20:50 Creatine Kinase 59 CK-MB (CK-2) Troponin I 0.039 Assessment & Plan - Diagnosis (1) Coronary artery disease Qualifiers: Coronary Disease-Associated Artery/Lesion type: [place] artery [place] vs. transplanted heart: [place] heart Associated angina: without angina Qualified Code(s): I25.10 - Atherosclerotic heart disease of [place] coronary artery without angina pectoris Is this a current diagnosis for this admission?: Yes Plan: Status post anterior STEMI in late August 2019 with placement of drug-eluting stent to the mid LAD. She has remained free of ischemic symptoms although there is a significant language barrier. Her GI work-up did not show any source of bleeding however she is at high risk of recurrent blood loss as described by her renal nurse. Unfortunately there is no good alternative for this patient as she has to be on dual antiplatelet therapy until August 2020 given her MARK to the mid LAD and non-STEMI however, given her elevated bleeding risk and significant blood loss with a hemoglobin of 6 requiring blood transfusions, I will switch her from Brilinta to Plavix and keep her on a baby aspirin. She will follow-up with Dr. 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 Recommendations: -Discontinue Brilinta. -Start Plavix 75 mg daily. -The patient may be discharged from the cardiovascular standpoint. -Follow-up with Dr. Nunes within 1 week of discharge. (2) Ischemic cardiomyopathy Plan: As described above with an ejection fraction between 30 and 35%. She has remained free of heart failure symptoms. Recommendations: -Continue with outpatient medical regimen. -Follow-up with Dr. Nunes upon discharge. (3) Blood in stool Is this a current diagnosis for this admission?: Yes Plan: No evidence of active bleeding on EGD/colonoscopy yesterday. Recommendations: -Further management per primary and surgery teams. -Given her elevated risk of recurrent blood loss I will switch her from Brilinta to Plavix. (4) Heart failure with reduced ejection fraction Is this a current diagnosis for this admission?: Yes Plan: The patient has a history of heart failure in the past with an ejection fraction between 30 and 35%. Please see above for recommendations. (5) Hypertension Is this a current diagnosis for this admission?: Yes Plan: Her blood pressure is at goal. We will continue with current management.
[2019-12-18] MEDS ORDERED: FERRIC CARBOXYMALTOSE 750 MG in NORMAL SALINE 250 ML IV ONE ×2 (09:00→10:00)
--- NOTE | 2019-12-18 09:22 | PDOC PROGRESS REPORT ---
Subjective Progress Note for:: 12/18/19 Subjective:: No acute events overnight, plan for discharge, IV iron being given currently Reason For Visit: SEVERE ANEMIA Physical Exam Vital Signs: Temp Pulse Resp BP Pulse Ox 98.3 F 70 18 107/56 L 95 12/18/19 07:36 12/18/19 07:36 12/18/19 07:36 12/18/19 07:36 12/18/19 07:36 Intake & Output 12/17/19 12/18/19 12/19/19 06:59 06:59 06:59 Intake Total 5130 800 Output Total 4450 300 Balance 680 500 Weight 54.1 kg 53.1 kg General appearance: PRESENT: no acute distress, well-developed, well-nourished Head exam: PRESENT: atraumatic, normocephalic Eye exam: PRESENT: conjunctiva pink, EOMI, PERRLA. ABSENT: scleral icterus Ear exam: PRESENT: normal external ear exam Mouth exam: PRESENT: moist, tongue midline Neck exam: ABSENT: carotid bruit, JVD, lymphadenopathy, thyromegaly Respiratory exam: PRESENT: clear to auscultation sky. ABSENT: rales, rhonchi, wheezes Cardiovascular exam: PRESENT: RRR. ABSENT: diastolic murmur, rubs, systolic murmur Pulses: PRESENT: normal dorsalis pedis pul Vascular exam: PRESENT: normal capillary refill GI/Abdominal exam: PRESENT: normal bowel sounds, soft. ABSENT: distended, guarding, mass, organolmegaly, rebound, tenderness Rectal exam: PRESENT: deferred Extremities exam: PRESENT: full ROM. ABSENT: calf tenderness, clubbing, pedal edema Neurological exam: PRESENT: alert, awake, oriented to person, oriented to place, oriented to time, oriented to situation, CN II-XII grossly intact. ABSENT: motor sensory deficit Psychiatric exam: PRESENT: appropriate affect, normal mood. ABSENT: homicidal ideation, suicidal ideation Skin exam: PRESENT: dry, intact, warm. ABSENT: cyanosis, rash Results Laboratory Results: 12/17/19 05:01 12/18/19 05:31 12/18/19 05:31 Sodium 137.2 Potassium 4.0 Chloride 109 H Carbon Dioxide 24 Anion Gap 4 L BUN 9 Creatinine 0.64 Est GFR ( Amer) > 60 Glucose 107 Calcium 8.8 12/13/19 12/13/19 12/14/19 18:45 18:45 08:58 Creatine Kinase 70 65 CK-MB (CK-2) 1.03 Troponin I 0.023 12/14/19 12/14/19 12/14/19 08:58 14:15 14:15 Creatine Kinase 61 CK-MB (CK-2) Troponin I 0.032 0.041 12/14/19 12/14/19 20:50 20:50 Creatine Kinase 59 CK-MB (CK-2) Troponin I 0.039 Impressions: Chest X-Ray 12/13/19 18:00 IMPRESSION: NO ACUTE RADIOGRAPHIC FINDING IN THE CHEST. Assessment & Plan - Diagnosis (1) Anemia Qualifiers: Anemia type: iron deficiency Iron deficiency anemia type: chronic blood loss Qualified Code(s): D50.0 - Iron deficiency anemia secondary to blood loss (chronic) Is this a current diagnosis for this admission?: Yes Plan: IV iron given, hemoglobin stable, okay for discharge and we can follow as an outpatient - Time Time Spent with patient: 15-24 minutes
--- NOTE | 2019-12-18 09:31 | PDOC DISCHARGE SUMMARY ---
Impression - Admit/DC Date/PCP Admission Date/Primary Care Provider: 12/13/19 20:23 ARNOLDO CASTILLO MD Discharge Date: 12/18/19 - Discharge Diagnosis (1) Incomplete rectal prolapse Is this a current diagnosis for this admission?: Yes (2) Blood in stool Is this a current diagnosis for this admission?: Yes (3) Anemia Is this a current diagnosis for this admission?: Yes (4) Coronary artery disease Is this a current diagnosis for this admission?: Yes (5) Epistaxis not due to trauma Is this a current diagnosis for this admission?: Yes - Additional Information Resuscitation Status: Full Code Discharge Diet: Cardiac Discharge Activity: Activity As Tolerated Referrals: [facility] [Provider Group] - 01/03/20 10:30 am ARNOLDO CASTILLO MD [Primary Care Provider] - 12/20/19 2:30 pm (f/u with ent f/u cardilogy f/u my offce next wk ) PIYUSH MARSHALL DO [ASSOCIATE] - (Needs a referrel from Dr. Castillo.) Prescriptions: Clopidogrel Bisulfate [Plavix 75 mg Tablet] 75 mg PO DAILY #30 tablet Home Medications: Losartan Potassium 25 mg PO DAILY 07/06/18 Furosemide [Lasix 20 mg Tablet] 20 mg PO BID 12/13/19 Metoprolol Succinate [Toprol Xl 25 mg Tab.sr] 25 mg PO DAILY 12/13/19 Nitroglycerin 0.4 mg SL PRN PRN 12/13/19 Pantoprazole Sodium [Protonix] 40 mg PO DAILY 12/13/19 Ranolazine [Ranolazine ER] 500 mg PO Q12 12/13/19 Rosuvastatin Calcium 40 mg PO QHS 12/13/19 Aspirin [Ecotrin 81 mg EC Tablet] 81 mg PO DAILY 12/14/19 Clopidogrel Bisulfate [Plavix 75 mg Tablet] 75 mg PO DAILY #30 tablet 12/18/19 History of Present Illiness History of Present Illness: PETRA GANDARA is a 84 year old female Is a 84-year-old female's admitting in the hospital because of the severe anemia symptomatic due to the reasons severe nosebleed and patient is underwent for the further work-up Hospital Course Hospital Course: This 84-year-old female's with a history of the cardiomyopathy recent history of the cardiac stent currently on a Brilinta and aspirin brought to the emergency department by the daughter because of the severe nosebleed for the last couple of days and patient hemoglobin dropped to 6.2 patient normally runs around 10 hemoglobin with a chronic iron deficiency anemia Patient was transfused a couple of unit of bloods patient otherwise denied any other complaints patient's nosebleed stopped because of the patient about drug eluded stent required aspirin and Brilinta consult the cardiology for further evaluations Patient also have some rectal prolapse and some blood in the stools underwent for endoscopy colonoscopy was all stable Otherwise remained stable no more bleeding no nosebleed no GI bleed Also seen by the post doc fellowship which patients follow outpatient give iron transfusions Patient is cardiology change the Brilinta to the Plavix and continues the as pirin We also schedule outpatient ENT to further evaluate while patient on aspirin and Plavix Cipro heparin again discuss with the daughter regarding the patient's current conditions Discharge patient home with home health follow outpatients cardiology in outpatient office Physical Exam Vital Signs: Temp Pulse Resp BP Pulse Ox 98.3 F 70 18 107/56 L 95 12/18/19 07:36 12/18/19 07:36 12/18/19 07:36 12/18/19 07:36 12/18/19 07:36 Intake & Output 12/17/19 12/18/19 12/19/19 06:59 06:59 06:59 Intake Total 5130 800 Output Total 4450 300 Balance 680 500 Weight 54.1 kg 53.1 kg General appearance: PRESENT: no acute distress, well-developed, well-nourished Head exam: PRESENT: atraumatic, normocephalic Eye exam: PRESENT: conjunctiva pink, EOMI, PERRLA. ABSENT: scleral icterus Ear exam: PRESENT: normal external ear exam Mouth exam: PRESENT: moist, tongue midline Neck exam: ABSENT: carotid bruit, JVD, lymphadenopathy, thyromegaly Respiratory exam: PRESENT: clear to auscultation sky. ABSENT: rales, rhonchi, wheezes Cardiovascular exam: PRESENT: RRR. ABSENT: diastolic murmur, rubs, systolic murmur Pulses: PRESENT: normal dorsalis pedis pul Vascular exam: PRESENT: normal capillary refill GI/Abdominal exam: PRESENT: normal bowel sounds, soft. ABSENT: distended, guarding, mass, organolmegaly, rebound, tenderness Rectal exam: PRESENT: deferred Extremities exam: PRESENT: full ROM. ABSENT: calf tenderness, clubbing, pedal edema Musculoskeletal exam: PRESENT: ambulatory Neurological exam: PRESENT: alert, awake, oriented to person, oriented to place, oriented to time, oriented to situation, CN II-XII grossly intact. ABSENT: motor sensory deficit Psychiatric exam: PRESENT: appropriate affect, normal mood. ABSENT: homicidal ideation, suicidal ideation Skin exam: PRESENT: dry, intact, warm. ABSENT: cyanosis, rash Results Laboratory Results: WBC 4.9 10^3/uL (4.0-10.5) 12/17/19 05:01 RBC 3.76 10^6/uL (3.72-5.28) 12/17/19 05:01 Hgb 10.1 g/dL (12.0-15.5) L 12/17/19 05:01 Hct 30.2 % (36.0-47.0) L 12/17/19 05:01 MCV 80 fl (80-97) 12/17/19 05:01 MCH 26.9 pg (27.0-33.4) L 12/17/19 05:01 MCHC 33.4 g/dL (32.0-36.0) 12/17/19 05:01 RDW 16.8 % (11.5-14.0) H 12/17/19 05:01 Plt Count 249 10^3/uL (150-450) 12/17/19 05:01 Lymph % (Auto) 29.3 % (13-45) 12/17/19 05:01 [place] % (Auto) 13.4 % (3-13) H 12/17/19 05:01 Eos % (Auto) 5.9 % (0-6) 12/17/19 05:01 Baso % (Auto) 1.3 % (0-2) 12/17/19 05:01 Reticulocyte # 0.078 10^6/uL (0.028-0.122) 12/13/19 18:45 Absolute Neuts (auto) 2.4 10^3/uL (1.7-8.2) 12/17/19 05:01 Absolute Lymphs (auto) 1.4 10^3/uL (0.5-4.7) 12/17/19 05:01 Absolute Monos (auto) 0.7 10^3/uL (0.1-1.4) 12/17/19 05:01 Absolute Eos (auto) 0.3 10^3/uL (0.0-0.6) 12/17/19 05:01 Absolute Basos (auto) 0.1 10^3/uL (0.0-0.2) 12/17/19 05:01 Seg Neutrophils % 50.1 % (42-78) 12/17/19 05:01 Retic Count (auto) 3.17 % (0.66-2.85) H 12/13/19 18:45 Sodium 137.2 mmol/L (137-145) 12/18/19 05:31 Potassium 4.0 mmol/L (3.6-5.0) 12/18/19 05:31 Chloride 109 mmol/L (98-107) H 12/18/19 05:31 Carbon Dioxide 24 mmol/L (22-30) 12/18/19 05:31 Anion Gap 4 (5-19) L 12/18/19 05:31 BUN 9 mg/dL (7-20) 12/18/19 05:31 Creatinine 0.64 mg/dL (0.52-1.25) 12/18/19 05:31 Est GFR ( Amer) > 60 (>60) 12/18/19 05:31 Est GFR (Non-Af Amer) Cancelled 12/13/19 18:45 Est GFR (MDRD) Non-Af > 60 (>60) 12/18/19 05:31 Glucose 107 mg/dL (75-110) 12/18/19 05:31 Hemoglobin A1c % 5.8 % (4.7-6.0) 12/14/19 08:58 Calcium 8.8 mg/dL (8.4-10.2) 12/18/19 05:31 Magnesium 2.2 mg/dL (1.6-2.3) 12/13/19 18:45 Iron 12.1 ug/dL (37-170) L 12/13/19 18:45 TIBC 437 ug/dL (250-450) 12/13/19 18:45 % Saturation 3 % 12/13/19 18:45 Ferritin 8.99 ng/mL (11.1-264.0) L 12/13/19 18:45 Total Bilirubin 0.4 mg/dL (0.2-1.3) 12/13/19 18:45 Direct Bilirubin 0.0 mg/dL (0.0-0.4) 12/13/19 18:45 Neonat Total Bilirubin Not Reportable 12/13/19 18:45 Neonat Direct Bilirubin Not Reportable 12/13/19 18:45 Neonat Indirect Bili Not Reportable 12/13/19 18:45 AST 26 U/L (14-36) 12/13/19 18:45 ALT 16 U/L (<35) 12/13/19 18:45 Alkaline Phosphatase 61 U/L (38-126) 12/13/19 18:45 Creatine Kinase 59 U/L (30-135) 12/14/19 20:50 CK-MB (CK-2) 1.03 ng/mL (<4.55) 12/13/19 18:45 Troponin I 0.039 ng/mL 12/14/19 20:50 Total Protein 6.3 g/dL (6.3-8.2) 12/13/19 18:45 Albumin 3.5 g/dL (3.5-5.0) 12/13/19 18:45 EGFR Cancelled 12/13/19 18:45 Vitamin B12 313.0 pg/mL (239-931) 12/13/19 18:45 Folate > 20.00 ng/mL (>2.76) 12/13/19 18:45 SARS-CoV-2 (PCR) NEGATIVE (NEGATIVE) 12/16/19 18:45 Blood Type B POSITIVE 12/13/19 18:45 Antibody Screen NEGATIVE 12/13/19 18:45 Crossmatch See Detail 12/13/19 18:45 12/13/19 12/14/19 12/14/19 18:45 08:58 14:15 CK-MB (CK-2) 1.03 Troponin I 0.023 0.032 0.041 12/14/19 20:50 CK-MB (CK-2) Troponin I 0.039 Impressions: Chest X-Ray 12/13/19 18:00 IMPRESSION: NO ACUTE RADIOGRAPHIC FINDING IN THE CHEST. Plan Time Spent: Greater than 30 Minutes - Follow outpatient ENT and cardiology Stroke Is this a Stroke Patient?: No Acute Heart Failure - Is this a Heart Failure Patient?: No
[2019-12-18] MEDS: PANTOPRAZOLE SODIUM 40 MG TABLET.DR PO SCH (09:34)
[2019-12-18] MEDS: FUROSEMIDE 20 MG TABLET PO SCH (09:34)
[2019-12-18 09:43] VITALS: BP 111/71
[2019-12-18] MEDS ORDERED: FERRIC CARBOXYMALTOSE INJ 750 MG/15 ML VIAL IV SCH (10:00)
== END 2019-12-18 10:09 | disposition home health service (06) | DRG 812 ==
LOC: ER 17:42 → EH 20:23 → 3W 21:12
PROVIDERS: ADMIT Internal Medicine; ATTEND Family Medicine
PROC: 30233N1 Transfusion of Nonautologous Red Blood Cells into Peripheral Vein, Percutaneous Approach (ICD-10-PCS; 2019-12-13)
PROC: 30233N1 Transfusion of Nonautologous Red Blood Cells into Peripheral Vein, Percutaneous Approach (ICD-10-PCS; 2019-12-14)
PROC: 0DJ08ZZ Inspection of Upper Intestinal Tract, Via Natural or Artificial Opening Endoscopic (ICD-10-PCS; principal; 2019-12-17 14:30)
PROC: 0DJD8ZZ Inspection of Lower Intestinal Tract, Via Natural or Artificial Opening Endoscopic (ICD-10-PCS; 2019-12-17 14:30)
DX: D50.0 Iron deficiency anemia secondary to blood loss (chronic) (principal); K92.1 Melena; I50.9 Heart failure, unspecified; I95.2 Hypotension due to drugs; I11.0 Hypertensive heart disease with heart failure; E78.5 Hyperlipidemia, unspecified; K62.3 Rectal prolapse; I25.10 Atherosclerotic heart disease of native coronary artery without angina pectoris; I25.5 Ischemic cardiomyopathy; K64.8 Other hemorrhoids; K62.89 Other specified diseases of anus and rectum; K57.90 Diverticulosis of intestine, part unspecified, without perforation or abscess without bleeding; R04.0 Epistaxis; Z79.02 Long term (current) use of antithrombotics/antiplatelets; Z79.82 Long term (current) use of aspirin; Z79.899 Other long term (current) drug therapy; Z95.5 Presence of coronary angioplasty implant and graft; I25.2 Old myocardial infarction; Z11.59 Encounter for screening for other viral diseases
CPT/HCPCS: 36415; 36430; 43235; 45380; 71045; 80048; 80053; 813; 82550; 82553; 82607; 82728; 82746; 83036; 83540; 83550; 83735; 84484; 85025; 85045; 86850; 86900; 86901; 86920; 87635; 88305; 93005; 93010; 96360; 99140; 99285; C9803; J0171; J1439; J1610; J2704; J3490; J7040; J7050; P9016